=== PATIENT | female | born 1930 | race Two or more races ===

== ENCOUNTER 2017-09-26 10:15 | Inpatient (IN) | payer MEDICARE, MEDICAID ==
[~2017-09-26] VITALS: Ht 160 cm; Wt 89.8 kg
[2017-09-26 10:58] LABS: Basophils # (auto) 0 uL; Basophils % (auto) 0.3 % (0.0-2.0); Eosinophils # (auto) 0.1 uL; Eosinophils % (auto) 1.1 % (0.0-7.0); Hematocrit 28.8 % (36.0-46.0); Hemoglobin 9.5 g/dL (12.2-16.2); Lymphocytes # (auto) 1.9 uL; Mean Corpuscular Hgb Conc. 32.9 g/dL (32.0-36.0); Mean Corpuscular Volume 87.9 fL (80.0-100.0); Monocytes % (auto) 11.7 % (0.0-12.0); Neutrophils # (auto) 5.2 uL; Neutrophils % (auto) 63.9 % (37.0-80.0); Nucleated Red Blood Cells % 0.1 %; Platelet Count (auto) 258 10^3/uL (140-450); Red Blood Cells 3.27 10^6/uL (4.0-5.20); Red Cell Distribution Width 22.4 % (11.8-14.3); White Blood Cell 8.2 10^3/uL (4.4-10.8)
[2017-09-26 11:15] LABS: Alanine Aminotransferase 33 U/L (13-56); Anion Gap 9 (5-15); Aspartate Aminotransferase 19 U/L (15-37); BUN/Creatinine Ratio 21.5; Blood Urea Nitrogen 70 mg/dL (7-18); Calcium 8.5 mg/dL (8.5-10.1); Carbon Dioxide 21 mmol/L (21-32); Chloride 94 mmol/L (98-107); GFR African American 17 mL/min; GFR Non-African American 14 mL/min; Glucose 268 mg/dL (74-106); Magnesium 2.5 mg/dL (1.6-2.6); Sodium 124 mmol/L (136-145)
[2017-09-26 11:18] LABS: Potassium 5.8 mmol/L (3.5-5.1)
[2017-09-26 11:23] LABS: Alkaline Phosphatase 44 U/L (45-117); Bilirubin, Total 0.6 mg/dL (0.2-1.0); Total Protein 6.8 g/dL (6.4-8.2)
[2017-09-26 13:54] LABS: Urine Bacteria FEW /hpf (None Seen); Urine Blood Negative /uL (Negative); Urine Specific Gravity 1.005 (1.001-1.035); Urine WBC 1 /hpf (0 - 5)
[2017-09-26] MEDS ORDERED: cefTRIAXone 1GM/10ml IVPUSH 10 ML IV ONE (16:00)
[2017-09-26] MEDS ORDERED: VANCOMYCIN PER PHARMACY 0 MG IV SCH (16:00)
[2017-09-26] MEDS ORDERED: DEXTROSE (50%) 50ML SYRG IV PRN (16:00)
[2017-09-26] MEDS ORDERED: CALCIUM GLUC 4.65meq/50ml D5AE 50 ML IV ONE (16:00)
[2017-09-26] MEDS ORDERED: InsuLIN REG 1unit/0.01ml Soln (100units/ml) SC ONE (16:00)
[2017-09-26] MEDS ORDERED: SODIUM BICARBONATE 8.4 % INJ 50ML VIAL IV ONE (16:00)
[2017-09-26] MEDS ORDERED: ONDANSETRON HCL 4 MG/2 ML VIAL IV PRN (16:15)
[2017-09-26] MEDS ORDERED: FUROSEMIDE 40 MG/4 ML VIAL IV ONE (16:15)
[2017-09-26] MEDS ORDERED: DOCUSATE SOD 100 MG CAP PO PRN (16:15)
[2017-09-26] MEDS ORDERED: ACETAMINOPHEN 325 MG TAB PO PRN (16:15)
[2017-09-26] MEDS ORDERED: MORPHINE SULFATE 8mg/ml INJ SDV IV PRN (16:15)
[2017-09-26] MEDS ORDERED: TEMAZEPAM 15 MG CAP PO PRN (16:15)
[2017-09-26] MEDS: ACCU-CHEK COMFORT CURVE STRIP VI SCH ×2 (17:00→23:43)
[2017-09-26] MEDS: InsuLIN REG 1unit/0.01ml Soln (100units/ml) SC SCH ×2 (17:00→23:43)
[2017-09-26] MEDS ORDERED: SODIUM BICARBONATE 8.4% INJ 50ML SYRINGE ONE (17:19)
[2017-09-26] MEDS: Boost Glucose Control 8 Ounces PO SCH (18:00)
[2017-09-26] MEDS ORDERED: VANCOMYCIN 1GM/250ML 250 ML IV SCH (18:00)
[2017-09-26] MEDS: SODIUM CHLOR 0.9% PF (SALINE LOCK) 10ML VIAL/SYR IV SCH (21:18)
[2017-09-26 22:00] VITALS: BP 149/77
[2017-09-26] MEDS ORDERED: FAMOTIDINE 20 MG TAB PO SCH (22:00)
[2017-09-26] MEDS: CARVEDILOL 12.5 MG TAB PO SCH (23:42)
[2017-09-26] MEDS: PANTOPRAZOLE 40 MG TAB PO SCH (23:43)
[2017-09-27] MEDS ORDERED: ALPR0.254 PO (03:13)
[2017-09-27] MEDS ORDERED: HYDR-4683 PO (03:13)
[2017-09-27] MEDS ORDERED: INSUINJ18 SC (03:13)
[2017-09-27] MEDS ORDERED: ONDA4TAB5 PO (03:13)
[2017-09-27] MEDS ORDERED: LISI-275 PO (03:13)
[2017-09-27] MEDS ORDERED: PANT40T PO (03:13)
[2017-09-27] MEDS ORDERED: ALBUAER3 IN (03:13)
[2017-09-27] MEDS ORDERED: FURO40TA4 PO (03:13)
[2017-09-27] MEDS ORDERED: SPIR100T21 PO (03:13)
[2017-09-27] MEDS ORDERED: B-CO-5 OR (03:13)
[2017-09-27] MEDS ORDERED: INSUINJ37 SC ×2 (03:13)
[2017-09-27] MEDS ORDERED: HYDR100T22 PO (03:13)
[2017-09-27] MEDS ORDERED: DULA1INJ SC (03:13)
[2017-09-27] MEDS ORDERED: TEMA15CA PO (03:13)
[2017-09-27] MEDS ORDERED: CARV12.544 PO (03:13)
[2017-09-27] MEDS ORDERED: TRAM50TA2 PO (03:13)
[2017-09-27] MEDS ORDERED: DOCU100C8 PO (03:13)
[2017-09-27] MEDS ORDERED: GUAI1SOL PO (03:13)
[2017-09-27] MEDS ORDERED: ZOLP5TAB5 PO (03:13)
[2017-09-27] MEDS ORDERED: PRE5T PO (03:13)
[2017-09-27] MEDS ORDERED: SENN1TAB14 PO (03:13)
[2017-09-27] MEDS ORDERED: LIDO5DIS21 TOP (03:13)
[2017-09-27] MEDS ORDERED: POTA10TA34 PO (03:13)
[2017-09-27] MEDS ORDERED: LACT10SO3 PO (03:13)
[2017-09-27] MEDS ORDERED: FERR-20 PO (03:13)
[2017-09-27] MEDS ORDERED: AMLO5TAB2 PO (03:13)
[2017-09-27 05:08] VITALS: BP 94/44
[2017-09-27 05:56] LABS: Basophils # (auto) 0 uL; Eosinophils # (auto) 0 uL; Hemoglobin 8.4 g/dL (12.2-16.2); Monocytes # (auto) 0.7 uL; Nucleated Red Blood Cells % 0.2 %
[2017-09-27 05:59] LABS: Basophils % (auto) 0.3 % (0.0-2.0); Eosinophils % (auto) 0.7 % (0.0-7.0); Hematocrit 24.7 % (36.0-46.0); Lymphocytes # (auto) 1.4 uL; Lymphocytes % (auto) 21.8 % (10.0-50.0); Mean Corpuscular Hgb Conc. 33.8 g/dL (32.0-36.0); Mean Corpuscular Volume 88.8 fL (80.0-100.0); Neutrophils # (auto) 4.4 uL; Neutrophils % (auto) 67.2 % (37.0-80.0); Platelet Count (auto) 233 10^3/uL (140-450); Red Blood Cells 2.78 10^6/uL (4.0-5.20); White Blood Cell 6.6 10^3/uL (4.4-10.8)
[2017-09-27 06:10] LABS: Red Cell Distribution Width 22.9 % (11.8-14.3)
[2017-09-27 06:27] LABS: Albumin 2.5 g/dL (3.4-5.0); BUN/Creatinine Ratio 20.1; Bilirubin, Total 0.5 mg/dL (0.2-1.0); Calcium 8.3 mg/dL (8.5-10.1); Potassium 5.3 mmol/L (3.5-5.1)
[2017-09-27] MEDS: ACCU-CHEK COMFORT CURVE STRIP VI SCH ×4 (06:43→22:40)
[2017-09-27] MEDS: SODIUM CHLOR 0.9% PF (SALINE LOCK) 10ML VIAL/SYR IV SCH ×3 (06:43→22:39)
[2017-09-27] MEDS: INSULIN LANTUS (GLARGINE) 1 /0.01ml (100units/ml) SC SCH (06:43)
[2017-09-27] MEDS: InsuLIN REG 1unit/0.01ml Soln (100units/ml) SC SCH ×4 (06:44→22:40)
[2017-09-27 08:00] VITALS: BP 103/42
[2017-09-27] MEDS: Boost Glucose Control 8 Ounces PO SCH ×3 (08:00→18:02)
[2017-09-27 08:35] VITALS: BP 103/42
[2017-09-27] MEDS: HYDROcodone-ACET 5/325MG TAB PO PRN ×2 (08:46→22:44)
[2017-09-27] MEDS: cefTRIAXone 1GM/10ml IVPUSH 10 ML IV SCH (08:47)
[2017-09-27] MEDS: amLODIPine BESYLATE 5 MG TAB PO SCH (10:00)
[2017-09-27] MEDS ORDERED: LISINOPRIL 5 MG TAB PO SCH (10:00)
[2017-09-27] MEDS ORDERED: FUROSEMIDE 40 MG/4 ML VIAL IV SCH (10:00)
[2017-09-27] MEDS: CARVEDILOL 12.5 MG TAB PO SCH ×2 (10:00→22:40)
[2017-09-27] MEDS: LIDOCAINE 5% TOPICAL PATCH TOP SCH (10:27)
[2017-09-27] MEDS: PANTOPRAZOLE 40 MG TAB PO SCH ×2 (10:29→22:40)
[2017-09-27] MEDS: LACTULOSE 20Gm/30ML SOLN PO SCH (10:29)
[2017-09-27] MEDS: FERROUS SULFATE 325 MG TAB PO SCH (10:29)
[2017-09-27] MEDS: B-COMPLEX W/ C & FOLIC ACID(NEPHROVITE TAB) PO SCH (10:29)
[2017-09-27 12:38] VITALS: BP 100/46
[2017-09-27 17:03] VITALS: BP 110/49
[2017-09-27] MEDS: FUROSEMIDE 40 MG/4 ML VIAL IV SCH (17:34)
[2017-09-27 22:03] VITALS: BP 121/47
[2017-09-28 04:59] VITALS: BP 91/53
[2017-09-28 05:45] LABS: Basophils # (auto) 0 uL; Basophils % (auto) 0.3 % (0.0-2.0); Eosinophils # (auto) 0.1 uL; Hemoglobin 8.1 g/dL (12.2-16.2); Lymphocytes # (auto) 1.5 uL; Mean Corpuscular Hgb Conc. 33.9 g/dL (32.0-36.0); Monocytes # (auto) 0.8 uL; Red Blood Cells 2.74 10^6/uL (4.0-5.20)
[2017-09-28 05:48] LABS: Eosinophils % (auto) 2.2 % (0.0-7.0); Hematocrit 24.1 % (36.0-46.0); Lymphocytes % (auto) 26.2 % (10.0-50.0); Mean Corpuscular Hemoglobin 29.8 pg (28.0-32.0); Mean Corpuscular Volume 87.9 fL (80.0-100.0); Monocytes % (auto) 12.8 % (0.0-12.0); Neutrophils # (auto) 3.4 uL; Neutrophils % (auto) 58.5 % (37.0-80.0); Nucleated Red Blood Cells % 0.2 %; Platelet Count (auto) 216 10^3/uL (140-450); White Blood Cell 5.9 10^3/uL (4.4-10.8)
[2017-09-28 06:05] LABS: Red Cell Distribution Width 22.3 % (11.8-14.3)
[2017-09-28 06:14] LABS: % Iron Saturation 6.2 % (15-50)
[2017-09-28] MEDS: SODIUM CHLOR 0.9% PF (SALINE LOCK) 10ML VIAL/SYR IV SCH ×3 (06:18→21:28)
[2017-09-28] MEDS: FUROSEMIDE 40 MG/4 ML VIAL IV SCH ×2 (06:18→17:49)
[2017-09-28] MEDS: ACCU-CHEK COMFORT CURVE STRIP VI SCH ×4 (06:31→21:28)
[2017-09-28 06:32] LABS: Albumin 2.4 g/dL (3.4-5.0); BUN/Creatinine Ratio 23.2; Bilirubin, Total 0.3 mg/dL (0.2-1.0); Potassium 4.8 mmol/L (3.5-5.1)
[2017-09-28] MEDS: InsuLIN REG 1unit/0.01ml Soln (100units/ml) SC SCH ×4 (06:32→21:33)
[2017-09-28] MEDS: INSULIN LANTUS (GLARGINE) 1 /0.01ml (100units/ml) SC SCH (06:32)
[2017-09-28] MEDS: Boost Glucose Control 8 Ounces PO SCH ×3 (08:00→17:49)
[2017-09-28 10:00] VITALS: BP 104/53
[2017-09-28] MEDS: LIDOCAINE 5% TOPICAL PATCH TOP SCH (10:00)
[2017-09-28] MEDS: amLODIPine BESYLATE 5 MG TAB PO SCH (10:00)
[2017-09-28] MEDS: LACTULOSE 20Gm/30ML SOLN PO SCH (10:00)
[2017-09-28] MEDS: CARVEDILOL 12.5 MG TAB PO SCH ×2 (10:00→21:33)
[2017-09-28] MEDS: FERROUS SULFATE 325 MG TAB PO SCH (10:47)
[2017-09-28] MEDS: cefTRIAXone 1GM/10ml IVPUSH 10 ML IV SCH (10:47)
[2017-09-28] MEDS: B-COMPLEX W/ C & FOLIC ACID(NEPHROVITE TAB) PO SCH (10:48)
[2017-09-28] MEDS: PANTOPRAZOLE 40 MG TAB PO SCH ×2 (10:48→21:28)
[2017-09-28] MEDS: HYDROcodone-ACET 5/325MG TAB PO PRN ×2 (10:50→21:28)
[2017-09-28 12:27] VITALS: BP 110/54
[2017-09-28 17:00] VITALS: BP 114/61
[2017-09-28 20:00] VITALS: BP 113/59
[2017-09-28 22:00] VITALS: BP 113/59
[2017-09-29 06:04] LABS: Basophils # (auto) 0 uL; Eosinophils # (auto) 0.2 uL; Hematocrit 24.6 % (36.0-46.0); Hemoglobin 8.3 g/dL (12.2-16.2); Lymphocytes # (auto) 1.7 uL; Mean Corpuscular Hgb Conc. 33.9 g/dL (32.0-36.0); Monocytes # (auto) 0.9 uL; Neutrophils # (auto) 3.3 uL
[2017-09-29] MEDS: FUROSEMIDE 40 MG/4 ML VIAL IV SCH (06:11)
[2017-09-29] MEDS: SODIUM CHLOR 0.9% PF (SALINE LOCK) 10ML VIAL/SYR IV SCH ×2 (06:11→14:20)
[2017-09-29 06:28] LABS: Albumin 2.4 g/dL (3.4-5.0); BUN/Creatinine Ratio 27.6; Bilirubin, Total 0.3 mg/dL (0.2-1.0); Calcium 8.1 mg/dL (8.5-10.1); Potassium 4.2 mmol/L (3.5-5.1); Total Protein 6.1 g/dL (6.4-8.2)
[2017-09-29 06:31] LABS: Basophils % (auto) 0.3 % (0.0-2.0); Eosinophils % (auto) 2.8 % (0.0-7.0); Lymphocytes % (auto) 27.9 % (10.0-50.0); Mean Corpuscular Hemoglobin 29.9 pg (28.0-32.0); Mean Corpuscular Volume 88.3 fL (80.0-100.0); Nucleated Red Blood Cells % 0.3 %; Platelet Count (auto) 238 10^3/uL (140-450); Red Blood Cells 2.78 10^6/uL (4.0-5.20); White Blood Cell 6.1 10^3/uL (4.4-10.8)
[2017-09-29 06:39] LABS: Red Cell Distribution Width 22.7 % (11.8-14.3)
[2017-09-29] MEDS: InsuLIN REG 1unit/0.01ml Soln (100units/ml) SC SCH ×3 (06:45→17:57)
[2017-09-29] MEDS: INSULIN LANTUS (GLARGINE) 1 /0.01ml (100units/ml) SC SCH (06:45)
[2017-09-29] MEDS: ACCU-CHEK COMFORT CURVE STRIP VI SCH ×3 (06:45→17:58)
[2017-09-29 08:00] VITALS: BP 108/50
[2017-09-29 09:00] VITALS: BP 108/50
[2017-09-29] MEDS: B-COMPLEX W/ C & FOLIC ACID(NEPHROVITE TAB) PO SCH (09:33)
[2017-09-29] MEDS: PANTOPRAZOLE 40 MG TAB PO SCH (09:33)
[2017-09-29] MEDS: CARVEDILOL 12.5 MG TAB PO SCH (09:33)
[2017-09-29] MEDS: LACTULOSE 20Gm/30ML SOLN PO SCH (09:34)
[2017-09-29] MEDS: cefTRIAXone 1GM/10ml IVPUSH 10 ML IV SCH (09:34)
[2017-09-29] MEDS: amLODIPine BESYLATE 5 MG TAB PO SCH (09:34)
[2017-09-29] MEDS: LIDOCAINE 5% TOPICAL PATCH TOP SCH (09:35)
[2017-09-29] MEDS: Boost Glucose Control 8 Ounces PO SCH ×3 (11:58→18:00)
[2017-09-29] MEDS ORDERED: SODIUM FERR GLUC 62.5MG/5ML 125 MG in SODIUM CHL 0.9% 100 ML IV SCH (12:00)
[2017-09-29 13:00] VITALS: BP 129/48
[2017-09-29 17:00] VITALS: BP 128/58
[2017-09-29 20:00] VITALS: BP 139/53
[2017-09-29 20:31] VITALS: BP 139/53
[2017-09-29] MEDS ORDERED: CARVEDILOL 3.125 MG TAB PO SCH (22:00)
[2017-09-30] MEDS ORDERED: FUROSEMIDE 40 MG/4 ML VIAL IV SCH (06:00)
== END 2017-09-29 21:30 | DRG 871 ==
LOC: EDBD 10:15 → ER 10:15 → OVERFLOW 10:16 → WEST WING 21:46
PROVIDERS: ADMIT Internal Medicine; ATTEND Internal Medicine
DX: A41.9 Sepsis, unspecified organism (principal); I50.43 Acute on chronic combined systolic (congestive) and diastolic (congestive) heart failure; J96.01 Acute respiratory failure with hypoxia; I13.2 Hypertensive heart and chronic kidney disease with heart failure and with stage 5 chronic kidney disease, or end stage renal disease; N17.9 Acute kidney failure, unspecified; E44.0 Moderate protein-calorie malnutrition; N18.6 End stage renal disease; N39.0 Urinary tract infection, site not specified; E87.1 Hypo-osmolality and hyponatremia; E11.21 Type 2 diabetes mellitus with diabetic nephropathy; E78.5 Hyperlipidemia, unspecified; D63.8 Anemia in other chronic diseases classified elsewhere; J44.9 Chronic obstructive pulmonary disease, unspecified; E11.22 Type 2 diabetes mellitus with diabetic chronic kidney disease; E87.5 Hyperkalemia; I25.10 Atherosclerotic heart disease of native coronary artery without angina pectoris; E11.65 Type 2 diabetes mellitus with hyperglycemia; D50.9 Iron deficiency anemia, unspecified; Z83.3 Family history of diabetes mellitus; Z99.81 Dependence on supplemental oxygen; Z68.35 Body mass index [BMI] 35.0-35.9, adult; Z88.2 Allergy status to sulfonamides; Z88.1 Allergy status to other antibiotic agents; I25.2 Old myocardial infarction
CPT/HCPCS: 36415; 36600; 71045; 76775; 80053; 81001; 82805; 82962; 83036; 83540; 83550; 83605; 83735; 83880; 84484; 85025; 85379; 87040; 87081; 87086; 93005; 93306; 93970; 96372; 96374; 96375; 96376; 99291; J0610; J1815

== ENCOUNTER 2020-08-15 21:04 | Inpatient (IN) | payer MEDICARE, MEDICAID ==
[~2020-08-15] VITALS: Ht 160 cm; Wt 81.8 kg
[~2020-08-15 21:04] MED LIST: ALBUAER3 IN; ALPR0.254 PO; B-CO-5 OR; CARV6.2551 PO; DOCU100C10 PO; DULA1INJ SC; EPOE10003 IJ; FERR-20 PO; FURO40TA4 PO; GUAI1SOL PO; HYDR-4833 PO; HYDR100T22 PO; HYDR10TA26 PO; INSUINJ18 SC; INSUINJ37 SC; LACT10SO3 PO; LIDO5DIS21 TOP; LISI-275 PO; MAGN400C2 PO; METF-370 PO; METH500T22 PO; ONDA-144 PO; PANT40T PO; POTA1TAB61 PO; PRE5T PO; SENN1TAB14 PO; SPIR100T4 PO; SUCR1TAB PO; TEMA15CA PO; TERA1CAP33 PO; TRAM50TA2 PO; ZOLP5TAB5 PO
[2020-08-15 22:23] LABS: Basophils # (auto) 0 10 ^3/uL (0-0.2); Eosinophils # (auto) 0.3 10 ^3/uL (0-0.8); Eosinophils % (auto) 2.5 % (0.0-7.0); Hemoglobin 7.7 g/dL (12.2-16.2); Lymphocytes # (auto) 0.7 10 ^3/uL (0.4-5.4); Monocytes # (auto) 0.8 10 ^3/uL (0-1.3)
[2020-08-15 22:24] LABS: Basophils % (auto) 0.1 % (0.0-2.0); Hematocrit 22.8 % (36.0-46.0); Lymphocytes % (auto) 6.7 % (10.0-50.0); Mean Corpuscular Hemoglobin 28.6 pg (28.0-32.0); Mean Corpuscular Hgb Conc. 33.8 g/dL (32.0-36.0); Mean Corpuscular Volume 84.7 fL (80.0-100.0); Monocytes % (auto) 7.7 % (0.0-12.0); Neutrophils # (auto) 8.7 10 ^3/uL (1.6-8.6); Red Cell Distribution Width 15.6 % (11.8-14.3); White Blood Cell 10.5 10^3/uL (4.4-10.8)
[2020-08-15 22:42] LABS: Albumin 2.6 g/dL (3.4-5.0); Anion Gap 10 (5-15); Blood Urea Nitrogen 68 mg/dL (7-18); Calcium 7.9 mg/dL (8.5-10.1); Carbon Dioxide 23 mmol/L (21-32); Chloride 93 mmol/L (98-107); Glucose 263 mg/dL (74-106); Potassium 4.3 mmol/L (3.5-5.1); Sodium 126 mmol/L (136-145)
[2020-08-15 22:47] LABS: Alanine Aminotransferase 30 U/L (13-56); Alkaline Phosphatase 84 U/L (45-117); Aspartate Aminotransferase 21 U/L (15-37); Bilirubin, Total 0.6 mg/dL (0.2-1.0); GFR African American 30 mL/min; GFR Non-African American 25 mL/min; Total Protein 7.1 g/dL (6.4-8.2)
[2020-08-15 22:57] LABS: INR 1.15 (0.9-1.15); Partial Thromboplastin Time 29.8 sec (23.0-31.2)
[2020-08-15] MEDS ORDERED: FUROSEMIDE 20 MG/2 ML VIAL IV ONE (23:15)
[2020-08-16] MEDS ORDERED: NITROGLYCERIN 0.4 MG SL TAB SL PRN
[2020-08-16] MEDS ORDERED: ACETAMINOPHEN 325 MG TAB PO PRN
[2020-08-16] MEDS ORDERED: MORPHINE SULFATE INJECTION 2 MG/ML SYRG IV PRN
[2020-08-16] MEDS ORDERED: ALBUTEROL SULF 2.5 MG/0.5ML(0.5%) NEB SOLN NEB PRN
[2020-08-16 01:25] VITALS: BP 130/50
[2020-08-16] MEDS ORDERED: ONDANSETRON HCL 4 MG/2 ML VIAL IV ONE (02:00)
[2020-08-16] MEDS ORDERED: MORPHINE SULFATE INJECTION 2 MG/ML SYRG IV ONE (02:00)
[2020-08-16] MEDS ORDERED: FUROSEMIDE 40 MG/4 ML VIAL IV ONE (10:00)
[2020-08-16] MEDS ORDERED: EPOETIN ALFA-EPBX 10,000 UNIT/1ML VIAL SC SCH (10:00)
[2020-08-16] MEDS: DOCUSATE SOD 100 MG CAP PO SCH ×2 (10:00→22:00)
[2020-08-16] MEDS: CARVEDILOL 3.125 MG TAB PO SCH ×2 (10:06→22:01)
[2020-08-16] MEDS: SUCRALFATE 1 GM TAB PO SCH (10:06)
[2020-08-16] MEDS: LISINOPRIL 5 MG TAB PO SCH (10:07)
[2020-08-16] MEDS: PANTOPRAZOLE 40 MG TAB PO SCH ×2 (10:07→22:01)
[2020-08-16] MEDS ORDERED: DEXTROSE (50%) 50ML SYRG IV PRN (12:15)
[2020-08-16] MEDS: InsuLIN REG 1unit/0.01ml Soln (100units/ml) SC SCH ×3 (12:17→22:11)
[2020-08-16] MEDS ORDERED: INSREGI (14:25)
[2020-08-16] MEDS ORDERED: FLUT1AER3 INH (14:25)
[2020-08-16] MEDS ORDERED: HYDR1CAP27 PO (14:25)
[2020-08-16] MEDS ORDERED: ERGO1CAP12 PO (14:25)
[2020-08-16 16:00] VITALS: BP 150/72
[2020-08-16] MEDS: ACCU-CHEK COMFORT CURVE STRIP VI SCH ×2 (17:00→22:03)
[2020-08-16] MEDS ORDERED: LACTULOSE 20Gm/30ML SOLN PO PRN (17:00)
[2020-08-16] MEDS ORDERED: FUROSEMIDE 100 MG/10ML VIAL IV SCH (18:00)
[2020-08-16 18:10] LABS: Urine Bacteria NONE SEEN /hpf (None Seen); Urine Blood 2+ /uL (Negative); Urine Specific Gravity 1.009 (1.001-1.035); Urine WBC 2 /hpf (0 - 5)
[2020-08-16] MEDS: FERROUS SULFATE 325mg EC TAB PO SCH (22:00)
[2020-08-16] MEDS: TEMAZEPAM 15 MG CAP PO SCH (22:02)
[2020-08-16] MEDS: INSULIN LANTUS (GLARGINE) 1 /0.01ml (100units/ml) SC SCH (22:04)
[2020-08-16 22:25] VITALS: BP 130/60
[2020-08-17] VITALS (7 sets, daily range): BP systolic 120–137; BP diastolic 48–60
[2020-08-17] MEDS: ACCU-CHEK COMFORT CURVE STRIP VI SCH ×4 (06:09→21:56)
[2020-08-17] MEDS: InsuLIN REG 1unit/0.01ml Soln (100units/ml) SC SCH ×4 (06:12→21:53)
[2020-08-17] MEDS: SUCRALFATE 1 GM TAB PO SCH (10:09)
[2020-08-17] MEDS: DOCUSATE SOD 100 MG CAP PO SCH ×2 (10:10→21:52)
[2020-08-17] MEDS: LISINOPRIL 5 MG TAB PO SCH (10:11)
[2020-08-17] MEDS: FUROSEMIDE 20 MG TAB PO SCH ×2 (10:12→17:26)
[2020-08-17] MEDS: PANTOPRAZOLE 40 MG TAB PO SCH ×2 (10:12→21:36)
[2020-08-17 10:19] LABS: Basophils # (auto) 0 10 ^3/uL (0-0.2); Eosinophils # (auto) 0.3 10 ^3/uL (0-0.8); Lymphocytes # (auto) 1.3 10 ^3/uL (0.4-5.4); Monocytes # (auto) 0.9 10 ^3/uL (0-1.3); Red Blood Cells 2.68 10^6/uL (4.0-5.20)
[2020-08-17 10:25] LABS: Basophils % (auto) 0.3 % (0.0-2.0); Eosinophils % (auto) 3.5 % (0.0-7.0); Hematocrit 22.4 % (36.0-46.0); Hemoglobin 7.6 g/dL (12.2-16.2); Lymphocytes % (auto) 14.6 % (10.0-50.0); Mean Corpuscular Hemoglobin 28.3 pg (28.0-32.0); Mean Corpuscular Hgb Conc. 33.8 g/dL (32.0-36.0); Mean Corpuscular Volume 83.8 fL (80.0-100.0); Monocytes % (auto) 10.4 % (0.0-12.0); Neutrophils # (auto) 6.3 10 ^3/uL (1.6-8.6); Neutrophils % (auto) 71.2 % (37.0-80.0); Nucleated Red Blood Cells % 0.1 %; White Blood Cell 8.9 10^3/uL (4.4-10.8)
[2020-08-17 10:43] LABS: Calcium 8.4 mg/dL (8.5-10.1); Potassium 4.5 mmol/L (3.5-5.1)
[2020-08-17 10:46] LABS: BUN/Creatinine Ratio 31.3
[2020-08-17] MEDS: CARVEDILOL 3.125 MG TAB PO SCH ×2 (12:27→21:36)
[2020-08-17] MEDS: TEMAZEPAM 15 MG CAP PO SCH (21:35)
[2020-08-17] MEDS: FERROUS SULFATE 325mg EC TAB PO SCH (21:36)
[2020-08-17] MEDS: INSULIN LANTUS (GLARGINE) 1 /0.01ml (100units/ml) SC SCH (21:58)
[2020-08-18] VITALS (7 sets, daily range): BP systolic 122–154; BP diastolic 49–73
[2020-08-18] MEDS: FUROSEMIDE 20 MG TAB PO SCH (05:46)
[2020-08-18] MEDS: ACCU-CHEK COMFORT CURVE STRIP VI SCH ×3 (06:15→17:00)
[2020-08-18] MEDS: InsuLIN REG 1unit/0.01ml Soln (100units/ml) SC SCH ×4 (06:20→19:35)
[2020-08-18 06:58] LABS: Basophils # (auto) 0 10 ^3/uL (0-0.2); Basophils % (auto) 0.4 % (0.0-2.0); Eosinophils # (auto) 0.3 10 ^3/uL (0-0.8); Eosinophils % (auto) 3.7 % (0.0-7.0); Hematocrit 26.3 % (36.0-46.0); Hemoglobin 8.9 g/dL (12.2-16.2); Lymphocytes % (auto) 10.6 % (10.0-50.0); Mean Corpuscular Volume 85.1 fL (80.0-100.0); Monocytes # (auto) 1.1 10 ^3/uL (0-1.3); Monocytes % (auto) 11.4 % (0.0-12.0); Neutrophils # (auto) 6.8 10 ^3/uL (1.6-8.6); Neutrophils % (auto) 73.9 % (37.0-80.0); Nucleated Red Blood Cells % 0.1 %; Red Blood Cells 3.09 10^6/uL (4.0-5.20); Red Cell Distribution Width 15.8 % (11.8-14.3); White Blood Cell 9.2 10^3/uL (4.4-10.8)
[2020-08-18] MEDS ORDERED: FUROSEMIDE 20 MG TAB PO SCH (10:00)
[2020-08-18] MEDS: LISINOPRIL 5 MG TAB PO SCH (10:00)
[2020-08-18] MEDS: SUCRALFATE 1 GM TAB PO SCH (10:41)
[2020-08-18] MEDS: CARVEDILOL 3.125 MG TAB PO SCH (10:42)
[2020-08-18] MEDS: DOCUSATE SOD 100 MG CAP PO SCH (10:42)
[2020-08-18] MEDS: PANTOPRAZOLE 40 MG TAB PO SCH (10:43)
== END 2020-08-18 20:45 | disposition home health service (06) | DRG 291 ==
LOC: EDBD 21:04 → ER 21:05 → TELE 23:56 → TELE-WESTW 08-16 12:30
PROVIDERS: ADMIT Internal Medicine; ATTEND Internal Medicine
PROC: 30233N1 Transfusion of Nonautologous Red Blood Cells into Peripheral Vein, Percutaneous Approach (ICD-10-PCS; 2020-08-17)
PROC: 4B02XSZ Measurement of Cardiac Pacemaker, External Approach (ICD-10-PCS; principal; 2020-08-18)
DX: I13.0 Hypertensive heart and chronic kidney disease with heart failure and stage 1 through stage 4 chronic kidney disease, or unspecified chronic kidney disease (principal); J96.01 Acute respiratory failure with hypoxia; I50.33 Acute on chronic diastolic (congestive) heart failure; N18.4 Chronic kidney disease, stage 4 (severe); E44.0 Moderate protein-calorie malnutrition; I48.91 Unspecified atrial fibrillation; E78.5 Hyperlipidemia, unspecified; Z68.30 Body mass index [BMI] 30.0-30.9, adult; J44.9 Chronic obstructive pulmonary disease, unspecified; D64.9 Anemia, unspecified; E11.22 Type 2 diabetes mellitus with diabetic chronic kidney disease; E66.9 Obesity, unspecified; I25.10 Atherosclerotic heart disease of native coronary artery without angina pectoris; Z20.822 Contact with and (suspected) exposure to COVID-19; Z79.899 Other long term (current) drug therapy; I25.2 Old myocardial infarction; Z83.3 Family history of diabetes mellitus; Z87.01 Personal history of pneumonia (recurrent); Z87.891 Personal history of nicotine dependence; Z95.0 Presence of cardiac pacemaker; Z88.1 Allergy status to other antibiotic agents; Z88.2 Allergy status to sulfonamides
CPT/HCPCS: 36415; 71045; 80048; 80053; 81001; 82270; 82962; 83880; 84484; 85025; 85610; 85730; 86850; 86900; 86901; 86920; 87426; 93005; 93306; 93970; 96374; 99291; G0378; J1815

== ENCOUNTER 2020-10-01 14:48 | Inpatient (IN) | payer MEDICARE, MEDICAID ==
[~2020-10-01] VITALS: Ht 167.6 cm; Wt 84.3 kg
[~2020-10-01 14:48] MED LIST changes: -ALBUAER3 IN; -ALPR0.254 PO; -B-CO-5 OR; -DULA1INJ SC; +ERGO1CAP12 PO; +FLUT1AER3 INH; -GUAI1SOL PO; -HYDR-4833 PO; -HYDR10TA26 PO; +HYDR1CAP27 PO; +INSREGI; -INSUINJ18 SC; -LACT10SO3 PO; -LIDO5DIS21 TOP; -LISI-275 PO; -METF-370 PO; -ONDA-144 PO; -PRE5T PO; -SENN1TAB14 PO; -SPIR100T4 PO; -TRAM50TA2 PO; -ZOLP5TAB5 PO
[2020-10-01] MEDS ORDERED: ONDANSETRON HCL 4 MG/2 ML VIAL ONE (14:55)
[2020-10-01] MEDS ORDERED: ONDANSETRON HCL 4 MG/2 ML VIAL IV ONE (15:00)
[2020-10-01] MEDS ORDERED: FUROSEMIDE 40 MG/4 ML VIAL IV ONE (15:15)
[2020-10-01] MEDS ORDERED: SUCCINYLCHOLINE CHLORIDE 20 MG/ML 10ML VIAL IV ONE ×2 (15:24→15:30)
[2020-10-01] MEDS ORDERED: ETOMIDATE (2MG/ML) 20ML VIAL IV ONE ×2 (15:24→15:30)
[2020-10-01] MEDS ORDERED: MIDAZOLAM DRIP 50 mg/50mL 50 ML IV ONE (15:25)
[2020-10-01 15:29] LABS: Basophils # (auto) 0 10 ^3/uL (0-0.2); Eosinophils # (auto) 0.1 10 ^3/uL (0-0.8); Hemoglobin 7.3 g/dL (12.2-16.2); Lymphocytes # (auto) 1.3 10 ^3/uL (0.4-5.4); Monocytes # (auto) 0.8 10 ^3/uL (0-1.3)
[2020-10-01] MEDS ORDERED: MIDAZOLAM DRIP 50 mg/50mL 50 ML IV SCH (15:30)
[2020-10-01 15:31] LABS: Basophils % (auto) 0.4 % (0.0-2.0); Eosinophils % (auto) 1.4 % (0.0-7.0); Hematocrit 22.9 % (36.0-46.0); Lymphocytes % (auto) 12.1 % (10.0-50.0); Mean Corpuscular Hemoglobin 30.4 pg (28.0-32.0); Mean Corpuscular Volume 94.9 fL (80.0-100.0); Monocytes % (auto) 7.2 % (0.0-12.0); Neutrophils # (auto) 8.5 10 ^3/uL (1.6-8.6); Neutrophils % (auto) 78.9 % (37.0-80.0); Platelet Count (auto) 211 10^3/uL (140-450); Red Blood Cells 2.41 10^6/uL (4.0-5.20); White Blood Cell 10.8 10^3/uL (4.4-10.8)
[2020-10-01 15:36] LABS: INR 1.12 (0.9-1.15); Partial Thromboplastin Time 27.3 sec (23.0-31.2)
[2020-10-01 15:49] LABS: Albumin 2.8 g/dL (3.4-5.0); BUN/Creatinine Ratio 39.3; Bilirubin, Total 0.6 mg/dL (0.2-1.0); Calcium 8.2 mg/dL (8.5-10.1); Potassium 5.3 mmol/L (3.5-5.1); Total Protein 6.7 g/dL (6.4-8.2)
[2020-10-01] MEDS ORDERED: PROPOFOL 100 ML IV ONE (16:01)
[2020-10-01] MEDS: PROPOFOL 100 ML IV SCH (16:25)
[2020-10-01] MEDS ORDERED: NOREPINEPHRINE 8 MG/250ML KIT 250 ML IV ONE (16:32)
[2020-10-01] MEDS: NOREPINEPHRINE 8 MG/250ML KIT 250 ML IV SCH (16:35)
[2020-10-01] MEDS: MIDAZOLAM DRIP 50 mg/50mL 50 ML IV SCH (17:24)
[2020-10-01 18:04] LABS: Urine Bacteria FEW /hpf (None Seen); Urine Blood Negative /uL (Negative); Urine Specific Gravity 1.011 (1.001-1.035); Urine WBC 1 /hpf (0 - 5)
[2020-10-01 18:09] VITALS: BP 131/40
[2020-10-01 18:33] VITALS: BP 140/47
[2020-10-01 20:08] VITALS: BP 124/47
[2020-10-01] MEDS ORDERED: HYDROcodone-ACET 5/325MG TAB PO PRN (21:30)
[2020-10-01] MEDS ORDERED: MORPHINE SULF INJ 2 MG/ML SYRINGE 1ML IV PRN (21:30)
[2020-10-01] MEDS ORDERED: ONDANSETRON HCL 4 MG/2 ML VIAL IV PRN (21:30)
[2020-10-01] MEDS ORDERED: MORPHINE SULFATE 4 MG/ML SYR/VIAL IV PRN (21:30)
[2020-10-01] MEDS ORDERED: NITROGLYCERIN 0.4 MG SL TAB SL PRN (21:30)
[2020-10-01] MEDS ORDERED: ACETAMINOPHEN 325 MG TAB PO PRN (21:30)
[2020-10-01] MEDS ORDERED: DEXTROSE (50%) 50ML SYRG IV PRN (21:30)
[2020-10-01 21:34] VITALS: BP 124/44
[2020-10-01] MEDS: HEPARIN SODIUM (PORCINE) 5000 UNITS/ML 1ML VIAL SC SCH (22:30)
[2020-10-01] MEDS: INSULIN LANTUS (GLARGINE) 1 /0.01ml (100units/ml) SC SCH (22:38)
[2020-10-02] VITALS (59 sets, daily range): BP systolic 98–145; BP diastolic 29–47
[2020-10-02] MEDS: ACCU-CHEK COMFORT CURVE STRIP VI SCH ×6 (00:06→20:00)
[2020-10-02] MEDS: InsuLIN REG 1unit/0.01ml Soln (100units/ml) SC SCH ×6 (00:07→20:00)
[2020-10-02] MEDS: PROPOFOL 100 ML IV SCH (00:12)
[2020-10-02] MEDS: MIDAZOLAM DRIP 50 mg/50mL 50 ML IV SCH ×5 (03:01→22:24)
[2020-10-02] MEDS: HEPARIN SODIUM (PORCINE) 5000 UNITS/ML 1ML VIAL SC SCH ×3 (05:52→22:22)
[2020-10-02 06:07] LABS: Basophils # (auto) 0 10 ^3/uL (0-0.2); Basophils % (auto) 0.3 % (0.0-2.0); Eosinophils # (auto) 0.2 10 ^3/uL (0-0.8); Eosinophils % (auto) 1.9 % (0.0-7.0); Hematocrit 21.1 % (36.0-46.0); Hemoglobin 7.1 g/dL (12.2-16.2); Lymphocytes # (auto) 0.7 10 ^3/uL (0.4-5.4); Lymphocytes % (auto) 5.2 % (10.0-50.0); Mean Corpuscular Hemoglobin 29.5 pg (28.0-32.0); Mean Corpuscular Hgb Conc. 33.4 g/dL (32.0-36.0); Mean Corpuscular Volume 88.2 fL (80.0-100.0); Monocytes # (auto) 1.2 10 ^3/uL (0-1.3); Monocytes % (auto) 9.4 % (0.0-12.0); Neutrophils # (auto) 10.8 10 ^3/uL (1.6-8.6); Neutrophils % (auto) 83.2 % (37.0-80.0); Platelet Count (auto) 209 10^3/uL (140-450); Red Blood Cells 2.39 10^6/uL (4.0-5.20); Red Cell Distribution Width 19.1 % (11.8-14.3)
[2020-10-02 06:21] LABS: Calcium 8.3 mg/dL (8.5-10.1); Potassium 3.6 mmol/L (3.5-5.1)
[2020-10-02 06:28] LABS: Albumin 2.8 g/dL (3.4-5.0); BUN/Creatinine Ratio 42.2; Bilirubin, Total 0.6 mg/dL (0.2-1.0); Total Protein 6.4 g/dL (6.4-8.2)
[2020-10-02] MEDS ORDERED: PANTOPRAZOLE 40 MG/10 ML VIAL INJ IV SCH (10:00)
[2020-10-02] MEDS: FUROSEMIDE 40 MG/4 ML VIAL IV SCH (10:30)
[2020-10-02] MEDS: NOREPINEPHRINE 8 MG/250ML KIT 250 ML IV SCH (15:15)
[2020-10-02] MEDS: INSULIN LANTUS (GLARGINE) 1 /0.01ml (100units/ml) SC SCH (22:00)
[2020-10-02] MEDS: PANTOPRAZOLE 40 MG/10 ML VIAL INJ IV SCH (22:21)
[2020-10-03] VITALS (62 sets, daily range): BP systolic 86–170; BP diastolic 26–116
[2020-10-03] MEDS: ACCU-CHEK COMFORT CURVE STRIP VI SCH ×6 (04:00→20:00)
[2020-10-03] MEDS: InsuLIN REG 1unit/0.01ml Soln (100units/ml) SC SCH ×6 (04:00→20:57)
[2020-10-03 10:23] LABS: Basophils # (auto) 0 10 ^3/uL (0-0.2); Eosinophils # (auto) 0.1 10 ^3/uL (0-0.8); Mean Corpuscular Volume 89.7 fL (80.0-100.0); Neutrophils # (auto) 10.8 10 ^3/uL (1.6-8.6)
[2020-10-03] MEDS: FUROSEMIDE 40 MG/4 ML VIAL IV SCH (10:23)
[2020-10-03] MEDS: PANTOPRAZOLE 40 MG/10 ML VIAL INJ IV SCH ×2 (10:23→20:44)
[2020-10-03 10:27] LABS: Basophils % (auto) 0.2 % (0.0-2.0); Eosinophils % (auto) 0.7 % (0.0-7.0); Hematocrit 21.3 % (36.0-46.0); Lymphocytes # (auto) 0.8 10 ^3/uL (0.4-5.4); Lymphocytes % (auto) 6.4 % (10.0-50.0); Mean Corpuscular Hemoglobin 29.4 pg (28.0-32.0); Mean Corpuscular Hgb Conc. 32.8 g/dL (32.0-36.0); Monocytes # (auto) 1.1 10 ^3/uL (0-1.3); Monocytes % (auto) 8.4 % (0.0-12.0); Neutrophils % (auto) 84.3 % (37.0-80.0); Platelet Count (auto) 224 10^3/uL (140-450); Red Blood Cells 2.37 10^6/uL (4.0-5.20); Red Cell Distribution Width 19.6 % (11.8-14.3); White Blood Cell 12.9 10^3/uL (4.4-10.8)
[2020-10-03 10:42] LABS: Albumin 2.5 g/dL (3.4-5.0); Calcium 8.4 mg/dL (8.5-10.1)
[2020-10-03 10:45] LABS: BUN/Creatinine Ratio 37.3; Bilirubin, Total 0.7 mg/dL (0.2-1.0)
[2020-10-03] MEDS: HEPARIN SODIUM (PORCINE) 5000 UNITS/ML 1ML VIAL SC SCH ×2 (14:23→20:54)
[2020-10-03] MEDS: PROPOFOL 100 ML IV SCH ×2 (16:00→22:00)
[2020-10-03] MEDS: NOREPINEPHRINE 8 MG/250ML KIT 250 ML IV SCH (16:45)
[2020-10-03] MEDS ORDERED: Glucerna 1.2 Cal 1Liter BOTTLE GT SCH (17:30)
[2020-10-03] MEDS: MIDAZOLAM DRIP 50 mg/50mL 50 ML IV SCH (19:15)
[2020-10-03] MEDS: INSULIN LANTUS (GLARGINE) 1 /0.01ml (100units/ml) SC SCH (20:56)
[2020-10-04] VITALS (78 sets, daily range): BP systolic 86–156; BP diastolic 15–104
[2020-10-04] MEDS: InsuLIN REG 1unit/0.01ml Soln (100units/ml) SC SCH ×6 (00:52→21:45)
[2020-10-04] MEDS: ACCU-CHEK COMFORT CURVE STRIP VI SCH ×6 (04:00→20:00)
[2020-10-04 04:47] LABS: Basophils # (auto) 0 10 ^3/uL (0-0.2); Basophils % (auto) 0.3 % (0.0-2.0); Eosinophils # (auto) 0.1 10 ^3/uL (0-0.8); Hematocrit 27.3 % (36.0-46.0); Hemoglobin 8.9 g/dL (12.2-16.2); Lymphocytes # (auto) 0.8 10 ^3/uL (0.4-5.4); Lymphocytes % (auto) 5.4 % (10.0-50.0); Mean Corpuscular Hemoglobin 28.7 pg (28.0-32.0); Monocytes # (auto) 1.4 10 ^3/uL (0-1.3); Monocytes % (auto) 9.6 % (0.0-12.0); Neutrophils % (auto) 83.7 % (37.0-80.0); White Blood Cell 14.4 10^3/uL (4.4-10.8)
[2020-10-04 04:48] LABS: Mean Corpuscular Hgb Conc. 32.6 g/dL (32.0-36.0); Platelet Count (auto) 244 10^3/uL (140-450); Red Cell Distribution Width 19.7 % (11.8-14.3)
[2020-10-04 05:07] LABS: Albumin 2.7 g/dL (3.4-5.0); Calcium 8.4 mg/dL (8.5-10.1); Magnesium 2.7 mg/dL (1.6-2.6); Potassium 3.5 mmol/L (3.5-5.1)
[2020-10-04 05:10] LABS: Bilirubin, Total 1.1 mg/dL (0.2-1.0); Total Protein 6.7 g/dL (6.4-8.2)
[2020-10-04] MEDS: MIDAZOLAM DRIP 50 mg/50mL 50 ML IV SCH ×2 (05:15→15:15)
[2020-10-04] MEDS: HEPARIN SODIUM (PORCINE) 5000 UNITS/ML 1ML VIAL SC SCH ×3 (05:38→21:52)
[2020-10-04] MEDS: POTASSIUM CHL 20MEQ/100ML 100 ML IV SCH ×2 (08:09→10:47)
[2020-10-04] MEDS: PANTOPRAZOLE 40 MG/10 ML VIAL INJ IV SCH ×2 (10:47→21:53)
[2020-10-04] MEDS: FUROSEMIDE 40 MG/4 ML VIAL IV SCH (10:47)
[2020-10-04] MEDS: NOREPINEPHRINE 8 MG/250ML KIT 250 ML IV SCH (16:45)
[2020-10-04] MEDS: INSULIN LANTUS (GLARGINE) 1 /0.01ml (100units/ml) SC SCH (21:52)
[2020-10-05] VITALS (98 sets, daily range): BP systolic 104–166; BP diastolic 26–93
[2020-10-05] MEDS: MIDAZOLAM DRIP 50 mg/50mL 50 ML IV SCH ×2 (01:15→11:15)
[2020-10-05] MEDS: ACCU-CHEK COMFORT CURVE STRIP VI SCH ×7 (04:00→23:57)
[2020-10-05 04:33] LABS: Basophils # (auto) 0 10 ^3/uL (0-0.2); Basophils % (auto) 0.4 % (0.0-2.0); Eosinophils # (auto) 0.3 10 ^3/uL (0-0.8); Hematocrit 26.5 % (36.0-46.0); Hemoglobin 8.7 g/dL (12.2-16.2); Lymphocytes % (auto) 8.8 % (10.0-50.0); Mean Corpuscular Hemoglobin 29.1 pg (28.0-32.0); Mean Corpuscular Hgb Conc. 32.9 g/dL (32.0-36.0); Mean Corpuscular Volume 88.5 fL (80.0-100.0); Monocytes # (auto) 1.2 10 ^3/uL (0-1.3); Monocytes % (auto) 10.9 % (0.0-12.0); Neutrophils # (auto) 8.7 10 ^3/uL (1.6-8.6); Neutrophils % (auto) 76.9 % (37.0-80.0); Platelet Count (auto) 249 10^3/uL (140-450); Red Blood Cells 2.99 10^6/uL (4.0-5.20); White Blood Cell 11.4 10^3/uL (4.4-10.8)
[2020-10-05 04:41] LABS: Albumin 2.5 g/dL (3.4-5.0); Magnesium 2.6 mg/dL (1.6-2.6); Potassium 3.6 mmol/L (3.5-5.1)
[2020-10-05 04:45] LABS: Red Cell Distribution Width 20.3 % (11.8-14.3)
[2020-10-05 04:47] LABS: BUN/Creatinine Ratio 34.9; Total Protein 6.5 g/dL (6.4-8.2)
[2020-10-05] MEDS: InsuLIN REG 1unit/0.01ml Soln (100units/ml) SC SCH ×6 (05:42→20:19)
[2020-10-05] MEDS: HEPARIN SODIUM (PORCINE) 5000 UNITS/ML 1ML VIAL SC SCH ×3 (05:43→21:53)
[2020-10-05] MEDS: PANTOPRAZOLE 40 MG/10 ML VIAL INJ IV SCH ×2 (09:30→21:52)
[2020-10-05] MEDS: FUROSEMIDE 40 MG/4 ML VIAL IV SCH (09:33)
[2020-10-05] MEDS: PROPOFOL 100 ML IV SCH ×2 (11:55→18:04)
[2020-10-05] MEDS: NOREPINEPHRINE 8 MG/250ML KIT 250 ML IV SCH (16:45)
[2020-10-05] MEDS: INSULIN LANTUS (GLARGINE) 1 /0.01ml (100units/ml) SC SCH (21:52)
[2020-10-06] VITALS (104 sets, daily range): BP systolic 107–171; BP diastolic 30–81
[2020-10-06] MEDS: InsuLIN REG 1unit/0.01ml Soln (100units/ml) SC SCH ×6 (00:02→20:18)
[2020-10-06] MEDS: PROPOFOL 100 ML IV SCH ×6 (00:03→21:59)
[2020-10-06] MEDS: ACCU-CHEK COMFORT CURVE STRIP VI SCH ×5 (03:40→20:16)
[2020-10-06 04:43] LABS: Basophils # (auto) 0 10 ^3/uL (0-0.2); Basophils % (auto) 0.3 % (0.0-2.0); Eosinophils # (auto) 0.3 10 ^3/uL (0-0.8); Eosinophils % (auto) 3.4 % (0.0-7.0); Hematocrit 26.3 % (36.0-46.0); Hemoglobin 8.7 g/dL (12.2-16.2); Lymphocytes # (auto) 0.7 10 ^3/uL (0.4-5.4); Lymphocytes % (auto) 7.3 % (10.0-50.0); Mean Corpuscular Hemoglobin 29.1 pg (28.0-32.0); Mean Corpuscular Hgb Conc. 33.1 g/dL (32.0-36.0); Mean Corpuscular Volume 88.1 fL (80.0-100.0); Monocytes % (auto) 10.1 % (0.0-12.0); Neutrophils # (auto) 7.9 10 ^3/uL (1.6-8.6); Neutrophils % (auto) 78.9 % (37.0-80.0); Platelet Count (auto) 254 10^3/uL (140-450); Red Blood Cells 2.98 10^6/uL (4.0-5.20); Red Cell Distribution Width 19.3 % (11.8-14.3)
[2020-10-06 04:57] LABS: Albumin 2.5 g/dL (3.4-5.0); Calcium 9.1 mg/dL (8.5-10.1); Magnesium 2.5 mg/dL (1.6-2.6); Potassium 3.3 mmol/L (3.5-5.1)
[2020-10-06 05:01] LABS: BUN/Creatinine Ratio 35.2; Bilirubin, Total 0.9 mg/dL (0.2-1.0); Total Protein 6.6 g/dL (6.4-8.2)
[2020-10-06] MEDS: HEPARIN SODIUM (PORCINE) 5000 UNITS/ML 1ML VIAL SC SCH ×3 (06:00→21:33)
[2020-10-06 06:09] LABS: INR 1.09 (0.9-1.15); Partial Thromboplastin Time 28.8 sec (23.0-31.2)
[2020-10-06] MEDS: MIDAZOLAM DRIP 50 mg/50mL 50 ML IV SCH ×3 (07:15→17:03)
[2020-10-06] MEDS ORDERED: POTASSIUM CHL 20MEQ/100ML 200 ML IV ONE (07:56)
[2020-10-06] MEDS: POTASSIUM CHL 20MEQ/100ML 100 ML IV SCH ×2 (08:21→09:47)
[2020-10-06] MEDS ORDERED: ACETYLCYSTEINE 10 %(100MG/ML) SOL 4ML ONE (08:29)
[2020-10-06] MEDS ORDERED: ACETYLCYSTEINE 10 %(100MG/ML) SOL 4ML NEB ONE (08:30)
[2020-10-06] MEDS ORDERED: BENZOCAINE (DENTAL) 20 % SPRAY 60ML MT ONE (08:31)
[2020-10-06] MEDS ORDERED: LIDOCAINE 2%HCL (LOCAL ANESTH.) INJ 20ML MDV ONE (08:31)
[2020-10-06] MEDS ORDERED: SODIUM CHLORIDE LOCK 30 ML ONE (08:31)
[2020-10-06] MEDS ORDERED: MIDAZOLAM HCL 5 MG/ML-1ML VIAL ONE (08:32)
[2020-10-06] MEDS ORDERED: fentaNYL CITRATE 100 MCG/2 ML VL ONE (08:32)
[2020-10-06] MEDS ORDERED: EPINEPHrine HCL 1 MG/1 ML AMP ONE (08:32)
[2020-10-06] MEDS ORDERED: LIDOCAINE HCL 2% TOP JELLY 5ML TOP ONE (08:32)
[2020-10-06] MEDS ORDERED: EPINEPHrine HCL 1 MG/10 ML SYRG ONE (08:33)
[2020-10-06] MEDS: FUROSEMIDE 40 MG/4 ML VIAL IV SCH (09:47)
[2020-10-06] MEDS: PANTOPRAZOLE 40 MG/10 ML VIAL INJ IV SCH ×2 (09:48→21:48)
[2020-10-06] MEDS: NOREPINEPHRINE 8 MG/250ML KIT 250 ML IV SCH (16:45)
[2020-10-06] MEDS: PIPERACILLIN-TAZOB 3.375GM 100 ML IV SCH (21:48)
[2020-10-06] MEDS: INSULIN LANTUS (GLARGINE) 1 /0.01ml (100units/ml) SC SCH (21:49)
[2020-10-07] VITALS (102 sets, daily range): BP systolic 91–166; BP diastolic 27–58
[2020-10-07] MEDS: ACCU-CHEK COMFORT CURVE STRIP VI SCH ×6 (00:16→20:39)
[2020-10-07] MEDS: InsuLIN REG 1unit/0.01ml Soln (100units/ml) SC SCH ×6 (00:16→20:41)
[2020-10-07] MEDS: PROPOFOL 100 ML IV SCH ×5 (01:03→23:20)
[2020-10-07 04:15] LABS: Basophils # (auto) 0 10 ^3/uL (0-0.2); Basophils % (auto) 0.4 % (0.0-2.0); Eosinophils # (auto) 0.5 10 ^3/uL (0-0.8); Eosinophils % (auto) 5.1 % (0.0-7.0); Hemoglobin 8.9 g/dL (12.2-16.2); Lymphocytes % (auto) 10.9 % (10.0-50.0); Mean Corpuscular Hemoglobin 29.3 pg (28.0-32.0); Mean Corpuscular Volume 88.7 fL (80.0-100.0); Monocytes # (auto) 1.1 10 ^3/uL (0-1.3); Monocytes % (auto) 11.9 % (0.0-12.0); Neutrophils # (auto) 6.8 10 ^3/uL (1.6-8.6); Neutrophils % (auto) 71.7 % (37.0-80.0); Nucleated Red Blood Cells % 0.1 %; Platelet Count (auto) 281 10^3/uL (140-450); Red Blood Cells 3.05 10^6/uL (4.0-5.20); White Blood Cell 9.5 10^3/uL (4.4-10.8)
[2020-10-07] MEDS: HEPARIN SODIUM (PORCINE) 5000 UNITS/ML 1ML VIAL SC SCH ×2 (06:00→09:47)
[2020-10-07] MEDS: PIPERACILLIN-TAZOB 3.375GM 100 ML IV SCH ×3 (06:07→22:19)
[2020-10-07 06:53] LABS: Potassium 4.1 mmol/L (3.5-5.1)
[2020-10-07] MEDS: MIDAZOLAM DRIP 50 mg/50mL 50 ML IV SCH ×2 (07:00→09:47)
[2020-10-07 07:08] LABS: Albumin 2.5 g/dL (3.4-5.0); BUN/Creatinine Ratio 32.2; Bilirubin, Total 0.8 mg/dL (0.2-1.0); Calcium 9.1 mg/dL (8.5-10.1); Total Protein 6.7 g/dL (6.4-8.2)
[2020-10-07] MEDS: PANTOPRAZOLE 40 MG/10 ML VIAL INJ IV SCH ×2 (09:39→22:19)
[2020-10-07] MEDS: FUROSEMIDE 40 MG/4 ML VIAL IV SCH (09:39)
[2020-10-07] MEDS: NOREPINEPHRINE 8 MG/250ML KIT 250 ML IV SCH (09:47)
[2020-10-07] MEDS: DOCUSATE ORAL LIQUID 100 MG/10 ML UD GT SCH (22:19)
[2020-10-07] MEDS: INSULIN LANTUS (GLARGINE) 1 /0.01ml (100units/ml) SC SCH (22:30)
[2020-10-08] VITALS (91 sets, daily range): BP systolic 89–169; BP diastolic 34–94
[2020-10-08] MEDS: ACCU-CHEK COMFORT CURVE STRIP VI SCH ×6 (00:24→20:00)
[2020-10-08] MEDS: InsuLIN REG 1unit/0.01ml Soln (100units/ml) SC SCH ×6 (00:25→20:44)
[2020-10-08] MEDS: PROPOFOL 100 ML IV SCH ×3 (04:01→21:46)
[2020-10-08 04:07] LABS: Basophils # (auto) 0 10 ^3/uL (0-0.2); Basophils % (auto) 0.4 % (0.0-2.0); Eosinophils # (auto) 0.4 10 ^3/uL (0-0.8); Eosinophils % (auto) 4.5 % (0.0-7.0); Hematocrit 27.3 % (36.0-46.0); Hemoglobin 8.9 g/dL (12.2-16.2); Lymphocytes # (auto) 0.9 10 ^3/uL (0.4-5.4); Lymphocytes % (auto) 11.3 % (10.0-50.0); Mean Corpuscular Hemoglobin 28.9 pg (28.0-32.0); Mean Corpuscular Hgb Conc. 32.6 g/dL (32.0-36.0); Mean Corpuscular Volume 88.7 fL (80.0-100.0); Monocytes # (auto) 0.9 10 ^3/uL (0-1.3); Monocytes % (auto) 11.5 % (0.0-12.0); Neutrophils # (auto) 5.8 10 ^3/uL (1.6-8.6); Neutrophils % (auto) 72.3 % (37.0-80.0); Platelet Count (auto) 257 10^3/uL (140-450); Red Blood Cells 3.08 10^6/uL (4.0-5.20); Red Cell Distribution Width 18.3 % (11.8-14.3)
[2020-10-08] MEDS: PIPERACILLIN-TAZOB 3.375GM 100 ML IV SCH ×3 (06:42→21:44)
[2020-10-08 08:14] LABS: Albumin 2.5 g/dL (3.4-5.0); Calcium 9.1 mg/dL (8.5-10.1); Potassium 3.8 mmol/L (3.5-5.1)
[2020-10-08 08:17] LABS: BUN/Creatinine Ratio 32.1; Bilirubin, Total 0.7 mg/dL (0.2-1.0)
[2020-10-08] MEDS: FUROSEMIDE 40 MG/4 ML VIAL IV SCH (10:20)
[2020-10-08] MEDS: DOCUSATE ORAL LIQUID 100 MG/10 ML UD GT SCH ×2 (10:20→21:44)
[2020-10-08] MEDS: PANTOPRAZOLE 40 MG/10 ML VIAL INJ IV SCH ×2 (10:20→21:44)
[2020-10-08] MEDS: FREE WATER GT SCH ×3 (12:10→23:59)
[2020-10-08] MEDS ORDERED: LACTULOSE 20Gm/30ML SOLN PO ONE (13:00)
[2020-10-08] MEDS: NOREPINEPHRINE 8 MG/250ML KIT 250 ML IV SCH (16:45)
[2020-10-08] MEDS: INSULIN LANTUS (GLARGINE) 1 /0.01ml (100units/ml) SC SCH (21:45)
[2020-10-09] VITALS (95 sets, daily range): BP systolic 109–161; BP diastolic 35–87
[2020-10-09] MEDS: PROPOFOL 100 ML IV SCH ×5 (01:39→22:48)
[2020-10-09 04:19] LABS: Basophils # (auto) 0.1 10 ^3/uL (0-0.2); Basophils % (auto) 0.5 % (0.0-2.0); Eosinophils # (auto) 0.4 10 ^3/uL (0-0.8); Eosinophils % (auto) 3.8 % (0.0-7.0); Hemoglobin 7.7 g/dL (12.2-16.2); Lymphocytes # (auto) 0.8 10 ^3/uL (0.4-5.4); Lymphocytes % (auto) 8.5 % (10.0-50.0); Mean Corpuscular Hemoglobin 28.4 pg (28.0-32.0); Mean Corpuscular Hgb Conc. 32.1 g/dL (32.0-36.0); Mean Corpuscular Volume 88.5 fL (80.0-100.0); Monocytes % (auto) 10.5 % (0.0-12.0); Neutrophils # (auto) 7.1 10 ^3/uL (1.6-8.6); Neutrophils % (auto) 76.7 % (37.0-80.0); Nucleated Red Blood Cells % 0.1 %; Platelet Count (auto) 235 10^3/uL (140-450); Red Blood Cells 2.71 10^6/uL (4.0-5.20); White Blood Cell 9.3 10^3/uL (4.4-10.8)
[2020-10-09 04:35] LABS: BUN/Creatinine Ratio 33.3; Calcium 7.9 mg/dL (8.5-10.1); Magnesium 2.1 mg/dL (1.6-2.6); Potassium 3.2 mmol/L (3.5-5.1)
[2020-10-09 04:38] LABS: Bilirubin, Total 0.7 mg/dL (0.2-1.0); Total Protein 6.1 g/dL (6.4-8.2)
[2020-10-09] MEDS: ACCU-CHEK COMFORT CURVE STRIP VI SCH ×7 (05:00→23:37)
[2020-10-09] MEDS: InsuLIN REG 1unit/0.01ml Soln (100units/ml) SC SCH ×7 (05:46→23:37)
[2020-10-09] MEDS: FREE WATER GT SCH ×4 (05:46→23:37)
[2020-10-09] MEDS: PIPERACILLIN-TAZOB 3.375GM 100 ML IV SCH ×3 (07:10→21:42)
[2020-10-09] MEDS: POTASSIUM CHL 20MEQ/100ML 100 ML IV SCH ×2 (09:15→11:05)
[2020-10-09] MEDS: FUROSEMIDE 40 MG/4 ML VIAL IV SCH (09:35)
[2020-10-09] MEDS: PANTOPRAZOLE 40 MG/10 ML VIAL INJ IV SCH ×2 (09:35→20:31)
[2020-10-09] MEDS: DOCUSATE ORAL LIQUID 100 MG/10 ML UD GT SCH ×2 (09:36→21:41)
[2020-10-09] MEDS: Glucerna 1.2 Cal 1Liter BOTTLE GT SCH (11:40)
[2020-10-09 12:31] LABS: Basophils # (auto) 0.1 10 ^3/uL (0-0.2); Basophils % (auto) 0.5 % (0.0-2.0); Eosinophils # (auto) 0.4 10 ^3/uL (0-0.8); Eosinophils % (auto) 2.7 % (0.0-7.0); Hematocrit 27.3 % (36.0-46.0); Hemoglobin 8.7 g/dL (12.2-16.2); Lymphocytes # (auto) 1.1 10 ^3/uL (0.4-5.4); Lymphocytes % (auto) 8.1 % (10.0-50.0); Mean Corpuscular Hemoglobin 28.2 pg (28.0-32.0); Mean Corpuscular Hgb Conc. 31.9 g/dL (32.0-36.0); Mean Corpuscular Volume 88.1 fL (80.0-100.0); Monocytes % (auto) 7.2 % (0.0-12.0); Neutrophils # (auto) 10.9 10 ^3/uL (1.6-8.6); Neutrophils % (auto) 81.5 % (37.0-80.0); Platelet Count (auto) 268 10^3/uL (140-450); Red Cell Distribution Width 17.8 % (11.8-14.3); White Blood Cell 13.3 10^3/uL (4.4-10.8)
[2020-10-09] MEDS: PANTOPRAZOLE 40mg/50ML NS AE 50 ML IV SCH ×3 (13:14→21:42)
[2020-10-09] MEDS: MIDAZOLAM DRIP 50 mg/50mL 50 ML IV SCH ×2 (16:00→16:20)
[2020-10-09] MEDS: NOREPINEPHRINE 8 MG/250ML KIT 250 ML IV SCH (16:22)
[2020-10-09] MEDS ORDERED: POTASSIUM CHL 20MEQ/100ML 100 ML IV SCH (17:00)
[2020-10-09] MEDS: INSULIN LANTUS (GLARGINE) 1 /0.01ml (100units/ml) SC SCH (20:30)
[2020-10-09] MEDS: BUMETANIDE 2.5mg/10ml (0.25 mg/ml) INJ IV SCH (21:42)
[2020-10-10] VITALS (99 sets, daily range): BP systolic 101–154; BP diastolic 15–113
[2020-10-10] MEDS: FREE WATER GT SCH ×2 (02:21→11:35)
[2020-10-10] MEDS: PROPOFOL 100 ML IV SCH ×6 (03:29→22:23)
[2020-10-10] MEDS: PANTOPRAZOLE 40mg/50ML NS AE 50 ML IV SCH ×5 (03:59→22:20)
[2020-10-10] MEDS: ACCU-CHEK COMFORT CURVE STRIP VI SCH ×5 (04:00→20:00)
[2020-10-10] MEDS: InsuLIN REG 1unit/0.01ml Soln (100units/ml) SC SCH ×5 (04:00→20:00)
[2020-10-10 04:44] LABS: Basophils # (auto) 0.1 10 ^3/uL (0-0.2); Basophils % (auto) 0.5 % (0.0-2.0); Eosinophils # (auto) 0.5 10 ^3/uL (0-0.8); Hematocrit 27.3 % (36.0-46.0); Hemoglobin 8.9 g/dL (12.2-16.2); Lymphocytes % (auto) 9.3 % (10.0-50.0); Mean Corpuscular Hemoglobin 28.6 pg (28.0-32.0); Mean Corpuscular Hgb Conc. 32.7 g/dL (32.0-36.0); Mean Corpuscular Volume 87.3 fL (80.0-100.0); Monocytes # (auto) 0.8 10 ^3/uL (0-1.3); Monocytes % (auto) 7.4 % (0.0-12.0); Neutrophils # (auto) 8.2 10 ^3/uL (1.6-8.6); Neutrophils % (auto) 77.8 % (37.0-80.0); Platelet Count (auto) 252 10^3/uL (140-450); Red Blood Cells 3.12 10^6/uL (4.0-5.20); White Blood Cell 10.6 10^3/uL (4.4-10.8)
[2020-10-10 05:04] LABS: Albumin 2.4 g/dL (3.4-5.0); Magnesium 2.7 mg/dL (1.6-2.6); Potassium 4.1 mmol/L (3.5-5.1)
[2020-10-10 05:07] LABS: BUN/Creatinine Ratio 30.7; Bilirubin, Total 0.9 mg/dL (0.2-1.0)
[2020-10-10] MEDS: BUMETANIDE 2.5mg/10ml (0.25 mg/ml) INJ IV SCH (05:45)
[2020-10-10] MEDS: PIPERACILLIN-TAZOB 3.375GM 100 ML IV SCH ×3 (05:46→22:19)
[2020-10-10] MEDS: MIDAZOLAM DRIP 50 mg/50mL 50 ML IV SCH ×2 (07:30→11:15)
[2020-10-10] MEDS: PANTOPRAZOLE 40 MG/10 ML VIAL INJ IV SCH ×2 (09:14→22:19)
[2020-10-10] MEDS: DOCUSATE ORAL LIQUID 100 MG/10 ML UD GT SCH ×2 (09:14→22:00)
[2020-10-10] MEDS: Glucerna 1.2 Cal 1Liter BOTTLE GT SCH (09:14)
[2020-10-10] MEDS ORDERED: diphenhdrAMINE HCL 50 MG/1 ML VL ONE (14:00)
[2020-10-10] MEDS ORDERED: MIDAZOLAM HCL 5 MG/ML-1ML VIAL ONE (14:00)
[2020-10-10] MEDS ORDERED: fentaNYL CITRATE 100 MCG/2 ML VL ONE (14:00)
[2020-10-10] MEDS: NOREPINEPHRINE 8 MG/250ML KIT 250 ML IV SCH (16:03)
[2020-10-10] MEDS: INSULIN LANTUS (GLARGINE) 1 /0.01ml (100units/ml) SC SCH (20:50)
[2020-10-11] VITALS (88 sets, daily range): BP systolic 103–185; BP diastolic 24–69
[2020-10-11] MEDS: PROPOFOL 100 ML IV SCH ×5 (03:22→23:12)
[2020-10-11] MEDS: PANTOPRAZOLE 40mg/50ML NS AE 50 ML IV SCH ×4 (04:15→23:11)
[2020-10-11] MEDS: ACCU-CHEK COMFORT CURVE STRIP VI SCH ×7 (04:16→23:58)
[2020-10-11] MEDS: InsuLIN REG 1unit/0.01ml Soln (100units/ml) SC SCH ×7 (04:17→23:55)
[2020-10-11 04:25] LABS: Eosinophils % (auto) 2.7 % (0.0-7.0); Lymphocytes # (auto) 0.9 10 ^3/uL (0.4-5.4); Neutrophils # (auto) 10.6 10 ^3/uL (1.6-8.6); Platelet Count (auto) 253 10^3/uL (140-450); Red Cell Distribution Width 17.8 % (11.8-14.3); White Blood Cell 12.8 10^3/uL (4.4-10.8)
[2020-10-11 04:27] LABS: Basophils # (auto) 0 10 ^3/uL (0-0.2); Basophils % (auto) 0.3 % (0.0-2.0); Eosinophils # (auto) 0.4 10 ^3/uL (0-0.8); Hematocrit 25.7 % (36.0-46.0); Hemoglobin 8.3 g/dL (12.2-16.2); Lymphocytes % (auto) 7.3 % (10.0-50.0); Mean Corpuscular Hemoglobin 28.1 pg (28.0-32.0); Mean Corpuscular Hgb Conc. 32.2 g/dL (32.0-36.0); Mean Corpuscular Volume 87.3 fL (80.0-100.0); Monocytes # (auto) 0.8 10 ^3/uL (0-1.3); Monocytes % (auto) 6.6 % (0.0-12.0); Neutrophils % (auto) 83.1 % (37.0-80.0); Nucleated Red Blood Cells % 0.1 %; Red Blood Cells 2.95 10^6/uL (4.0-5.20)
[2020-10-11 04:39] LABS: Albumin 2.2 g/dL (3.4-5.0); Calcium 8.6 mg/dL (8.5-10.1); Potassium 4.1 mmol/L (3.5-5.1)
[2020-10-11 04:42] LABS: BUN/Creatinine Ratio 30.1; Bilirubin, Total 0.8 mg/dL (0.2-1.0); Total Protein 6.8 g/dL (6.4-8.2)
[2020-10-11] MEDS: PIPERACILLIN-TAZOB 3.375GM 100 ML IV SCH (05:04)
[2020-10-11 05:06] LABS: Protein, Urine 23.2 mg/dL (0.0-11.9)
[2020-10-11 05:07] LABS: Urine Bacteria NONE SEEN /hpf (None Seen); Urine Blood Negative /uL (Negative); Urine Specific Gravity 1.024 (1.001-1.035); Urine WBC 2 /hpf (0 - 5)
[2020-10-11] MEDS: MIDAZOLAM DRIP 50 mg/50mL 50 ML IV SCH ×3 (07:15→16:16)
[2020-10-11] MEDS: SOD CHL 0.45% 1,000 ML IV SCH ×2 (07:53→20:37)
[2020-10-11] MEDS: PANTOPRAZOLE 40 MG/10 ML VIAL INJ IV SCH ×2 (08:06→22:00)
[2020-10-11] MEDS: Glucerna 1.2 Cal 1Liter BOTTLE GT SCH (08:06)
[2020-10-11] MEDS: DOCUSATE ORAL LIQUID 100 MG/10 ML UD GT SCH ×2 (08:06→20:37)
[2020-10-11] MEDS: PIPERACILLIN-TAZOB 2.25GM 50 ML IV SCH ×2 (12:35→18:34)
[2020-10-11] MEDS: methylPREDNISolone SOD SUCC 40 MG/ML VL IV SCH ×2 (13:49→21:15)
[2020-10-11] MEDS: NOREPINEPHRINE 8 MG/250ML KIT 250 ML IV SCH (16:16)
[2020-10-11] MEDS: INSULIN LANTUS (GLARGINE) 1 /0.01ml (100units/ml) SC SCH (21:02)
[2020-10-12] VITALS (54 sets, daily range): BP systolic 123–174; BP diastolic 30–62
[2020-10-12] MEDS: PIPERACILLIN-TAZOB 2.25GM 50 ML IV SCH ×5 (00:28→23:59)
[2020-10-12] MEDS: MIDAZOLAM DRIP 50 mg/50mL 50 ML IV SCH ×2 (03:15→10:45)
[2020-10-12 04:00] LABS: White Blood Cell 12.3 10^3/uL (4.4-10.8)
[2020-10-12 04:01] LABS: Hematocrit 24.5 % (36.0-46.0); Mean Corpuscular Hemoglobin 28.3 pg (28.0-32.0); Mean Corpuscular Hgb Conc. 32.5 g/dL (32.0-36.0); Mean Corpuscular Volume 86.9 fL (80.0-100.0); Platelet Count (auto) 230 10^3/uL (140-450); Red Blood Cells 2.82 10^6/uL (4.0-5.20); Red Cell Distribution Width 17.4 % (11.8-14.3)
[2020-10-12 04:07] LABS: Basophils % (manual) 0 (0.0-2.0); Blast Cells 0; Metamyelocytes % 0; Myelocytes % 0; Promyelocytes % 0; Reactive Lymphocytes 0
[2020-10-12] MEDS: ACCU-CHEK COMFORT CURVE STRIP VI SCH ×5 (04:18→20:02)
[2020-10-12] MEDS: InsuLIN REG 1unit/0.01ml Soln (100units/ml) SC SCH ×5 (04:18→20:03)
[2020-10-12] MEDS: PANTOPRAZOLE 40mg/50ML NS AE 50 ML IV SCH ×3 (04:19→10:44)
[2020-10-12 04:31] LABS: Albumin 2.2 g/dL (3.4-5.0); Calcium 8.5 mg/dL (8.5-10.1); Magnesium 3.2 mg/dL (1.6-2.6); Potassium 4.2 mmol/L (3.5-5.1)
[2020-10-12 04:35] LABS: BUN/Creatinine Ratio 32.6; Bilirubin, Total 0.8 mg/dL (0.2-1.0); Total Protein 6.8 g/dL (6.4-8.2)
[2020-10-12 05:08] LABS: Band Neutrophils % (manual) 2; Eosinophils % (manual) 1 (0-7); Lymphocytes % (manual) 4 (10.0-50.0); Monocytes % (manual) 1 (0-12)
[2020-10-12] MEDS: methylPREDNISolone SOD SUCC 40 MG/ML VL IV SCH ×3 (06:14→21:49)
[2020-10-12] MEDS: Glucerna 1.2 Cal 1Liter BOTTLE GT SCH ×2 (10:00→12:50)
[2020-10-12] MEDS: PANTOPRAZOLE 40 MG/10 ML VIAL INJ IV SCH ×2 (10:00→21:48)
[2020-10-12] MEDS: DOCUSATE ORAL LIQUID 100 MG/10 ML UD GT SCH ×2 (10:00→21:48)
[2020-10-12] MEDS: SOD CHL 0.45% 1,000 ML IV SCH ×2 (10:44→23:59)
[2020-10-12] MEDS: NOREPINEPHRINE 8 MG/250ML KIT 250 ML IV SCH (10:45)
[2020-10-12] MEDS: hydrALAZINE HCL 20 MG/ML VL IV PRN (12:41)
[2020-10-12] MEDS: PROPOFOL 100 ML IV SCH ×2 (12:41→15:18)
[2020-10-12] MEDS: IPRATROPIUM BROM 0.5 MG/2.5ML INH SOL NEB SCH (18:24)
[2020-10-12] MEDS: ALBUTEROL SULF 2.5 MG/0.5ML(0.5%) NEB SOLN NEB SCH (18:24)
[2020-10-12] MEDS: ACETYLCYSTEINE 10 %(100MG/ML) SOL 4ML NEB SCH (18:25)
[2020-10-12] MEDS: INSULIN LANTUS (GLARGINE) 1 /0.01ml (100units/ml) SC SCH (22:15)
[2020-10-13] VITALS (29 sets, daily range): BP systolic 134–168; BP diastolic 32–90
[2020-10-13] MEDS: IPRATROPIUM BROM 0.5 MG/2.5ML INH SOL NEB SCH ×4 (00:03→18:54)
[2020-10-13] MEDS: ALBUTEROL SULF 2.5 MG/0.5ML(0.5%) NEB SOLN NEB SCH ×4 (00:03→18:55)
[2020-10-13] MEDS: ACCU-CHEK COMFORT CURVE STRIP VI SCH ×6 (03:37→20:06)
[2020-10-13] MEDS: InsuLIN REG 1unit/0.01ml Soln (100units/ml) SC SCH ×6 (03:37→20:09)
[2020-10-13] MEDS: methylPREDNISolone SOD SUCC 40 MG/ML VL IV SCH ×3 (05:43→22:00)
[2020-10-13] MEDS: PIPERACILLIN-TAZOB 2.25GM 50 ML IV SCH ×3 (05:43→17:48)
[2020-10-13] MEDS: ACETYLCYSTEINE 10 %(100MG/ML) SOL 4ML NEB SCH ×3 (08:01→18:54)
[2020-10-13 08:17] LABS: Hematocrit 21.7 % (36.0-46.0); Mean Corpuscular Hemoglobin 28.1 pg (28.0-32.0); Mean Corpuscular Hgb Conc. 32.4 g/dL (32.0-36.0); Mean Corpuscular Volume 86.7 fL (80.0-100.0); Platelet Count (auto) 280 10^3/uL (140-450); Red Blood Cells 2.51 10^6/uL (4.0-5.20); Red Cell Distribution Width 17.3 % (11.8-14.3); White Blood Cell 12.6 10^3/uL (4.4-10.8)
[2020-10-13 08:26] LABS: Albumin 2.3 g/dL (3.4-5.0); Calcium 8.4 mg/dL (8.5-10.1); Potassium 4.2 mmol/L (3.5-5.1)
[2020-10-13 08:29] LABS: BUN/Creatinine Ratio 46.9; Bilirubin, Total 0.6 mg/dL (0.2-1.0); Total Protein 6.7 g/dL (6.4-8.2)
[2020-10-13 08:30] LABS: Band Neutrophils % (manual) 0; Basophils % (manual) 0 (0.0-2.0); Blast Cells 0; Eosinophils % (manual) 0 (0-7); Metamyelocytes % 0; Monocytes % (manual) 0 (0-12); Promyelocytes % 0; Reactive Lymphocytes 0
[2020-10-13 09:51] LABS: Lymphocytes % (manual) 10 (10.0-50.0); Myelocytes % 1
[2020-10-13] MEDS: DOCUSATE ORAL LIQUID 100 MG/10 ML UD GT SCH ×2 (10:00→22:00)
[2020-10-13] MEDS: PANTOPRAZOLE 40 MG/10 ML VIAL INJ IV SCH ×2 (13:31→22:00)
[2020-10-13] MEDS: SOD CHL 0.45% 1,000 ML IV SCH (13:32)
[2020-10-13] MEDS: NOREPINEPHRINE 8 MG/250ML KIT 250 ML IV SCH (16:45)
[2020-10-13] MEDS: INSULIN LANTUS (GLARGINE) 1 /0.01ml (100units/ml) SC SCH (22:07)
[2020-10-14] VITALS (21 sets, daily range): BP systolic 138–175; BP diastolic 36–53
[2020-10-14] MEDS: SOD CHL 0.45% 1,000 ML IV SCH ×2 (00:12→15:50)
[2020-10-14] MEDS: ACCU-CHEK COMFORT CURVE STRIP VI SCH ×6 (00:12→20:00)
[2020-10-14] MEDS: PIPERACILLIN-TAZOB 2.25GM 50 ML IV SCH ×4 (00:12→17:35)
[2020-10-14] MEDS: InsuLIN REG 1unit/0.01ml Soln (100units/ml) SC SCH ×6 (00:43→21:55)
[2020-10-14] MEDS: IPRATROPIUM BROM 0.5 MG/2.5ML INH SOL NEB SCH ×4 (00:55→19:13)
[2020-10-14] MEDS: ALBUTEROL SULF 2.5 MG/0.5ML(0.5%) NEB SOLN NEB SCH ×4 (00:55→19:13)
[2020-10-14 04:13] LABS: Red Cell Distribution Width 16.5 % (11.8-14.3); White Blood Cell 13.8 10^3/uL (4.4-10.8)
[2020-10-14 04:14] LABS: Hemoglobin 7.5 g/dL (12.2-16.2); Mean Corpuscular Hemoglobin 28.8 pg (28.0-32.0); Mean Corpuscular Hgb Conc. 32.4 g/dL (32.0-36.0); Mean Corpuscular Volume 88.7 fL (80.0-100.0); Platelet Count (auto) 286 10^3/uL (140-450); Red Blood Cells 2.59 10^6/uL (4.0-5.20)
[2020-10-14 04:22] LABS: Basophils % (manual) 0 (0.0-2.0); Blast Cells 0; Eosinophils % (manual) 0 (0-7); Promyelocytes % 0; Reactive Lymphocytes 0
[2020-10-14 04:49] LABS: Band Neutrophils % (manual) 1; Lymphocytes % (manual) 5 (10.0-50.0); Metamyelocytes % 3; Monocytes % (manual) 2 (0-12); Myelocytes % 1
[2020-10-14] MEDS: methylPREDNISolone SOD SUCC 40 MG/ML VL IV SCH ×3 (06:00→21:45)
[2020-10-14] MEDS: ACETYLCYSTEINE 10 %(100MG/ML) SOL 4ML NEB SCH ×3 (06:34→19:12)
[2020-10-14] MEDS: PANTOPRAZOLE 40 MG/10 ML VIAL INJ IV SCH ×2 (09:32→21:45)
[2020-10-14] MEDS: hydrALAZINE HCL 20 MG/ML VL IV PRN (09:32)
[2020-10-14] MEDS: DOCUSATE ORAL LIQUID 100 MG/10 ML UD GT SCH ×2 (09:32→21:45)
[2020-10-14] MEDS: Glucerna 1.2 Cal 1Liter BOTTLE GT SCH (09:33)
[2020-10-14 09:48] LABS: Hematocrit 22.4 % (36.0-46.0); Hemoglobin 7.2 g/dL (12.2-16.2); Mean Corpuscular Hemoglobin 28.5 pg (28.0-32.0); Mean Corpuscular Hgb Conc. 32.1 g/dL (32.0-36.0); Mean Corpuscular Volume 88.9 fL (80.0-100.0); Platelet Count (auto) 302 10^3/uL (140-450); Red Blood Cells 2.53 10^6/uL (4.0-5.20); Red Cell Distribution Width 16.5 % (11.8-14.3); White Blood Cell 14.2 10^3/uL (4.4-10.8)
[2020-10-14 09:51] LABS: Basophils % (manual) 0 (0.0-2.0); Blast Cells 0; Eosinophils % (manual) 0 (0-7); Myelocytes % 0; Promyelocytes % 0; Reactive Lymphocytes 0
[2020-10-14 10:56] LABS: CRP High Sensitivity 2.42 mg/dL (< 0.3)
[2020-10-14 10:57] LABS: % Iron Saturation 69.6 % (15-50)
[2020-10-14] MEDS: NOREPINEPHRINE 8 MG/250ML KIT 250 ML IV SCH (11:59)
[2020-10-14 12:18] LABS: Band Neutrophils % (manual) 4; Lymphocytes % (manual) 7 (10.0-50.0); Metamyelocytes % 2; Monocytes % (manual) 2 (0-12)
[2020-10-14] MEDS: INSULIN LANTUS (GLARGINE) 1 /0.01ml (100units/ml) SC SCH (21:56)
[2020-10-15] VITALS (19 sets, daily range): BP systolic 148–182; BP diastolic 36–59
[2020-10-15] MEDS: PIPERACILLIN-TAZOB 2.25GM 50 ML IV SCH ×5 (00:03→21:30)
[2020-10-15] MEDS: InsuLIN REG 1unit/0.01ml Soln (100units/ml) SC SCH ×6 (00:10→20:18)
[2020-10-15] MEDS: ACCU-CHEK COMFORT CURVE STRIP VI SCH ×6 (00:11→20:19)
[2020-10-15] MEDS: IPRATROPIUM BROM 0.5 MG/2.5ML INH SOL NEB SCH ×4 (00:38→18:24)
[2020-10-15] MEDS: ALBUTEROL SULF 2.5 MG/0.5ML(0.5%) NEB SOLN NEB SCH ×4 (00:38→18:24)
[2020-10-15] MEDS: SOD CHL 0.45% 1,000 ML IV SCH ×3 (00:45→21:38)
[2020-10-15 03:54] LABS: Hematocrit 20.2 % (36.0-46.0); Mean Corpuscular Hgb Conc. 32.5 g/dL (32.0-36.0); Mean Corpuscular Volume 89.4 fL (80.0-100.0); Platelet Count (auto) 337 10^3/uL (140-450); Red Blood Cells 2.26 10^6/uL (4.0-5.20); Red Cell Distribution Width 17.4 % (11.8-14.3); White Blood Cell 15.9 10^3/uL (4.4-10.8)
[2020-10-15 04:00] LABS: Hemoglobin 6.6 g/dL (12.2-16.2)
[2020-10-15 04:02] LABS: Band Neutrophils % (manual) 0; Basophils % (manual) 0 (0.0-2.0); Blast Cells 0; Eosinophils % (manual) 0 (0-7); Metamyelocytes % 0; Monocytes % (manual) 0 (0-12); Promyelocytes % 0; Reactive Lymphocytes 0
[2020-10-15 04:12] LABS: Lymphocytes % (manual) 11 (10.0-50.0); Myelocytes % 2
[2020-10-15 04:14] LABS: BUN/Creatinine Ratio 64.7; Calcium 8.7 mg/dL (8.5-10.1); Potassium 4.5 mmol/L (3.5-5.1)
[2020-10-15] MEDS: methylPREDNISolone SOD SUCC 40 MG/ML VL IV SCH ×3 (05:22→21:24)
[2020-10-15] MEDS: ACETYLCYSTEINE 10 %(100MG/ML) SOL 4ML NEB SCH ×2 (06:30→12:48)
[2020-10-15] MEDS: hydrALAZINE HCL 20 MG/ML VL IV PRN (08:23)
[2020-10-15] MEDS: DOCUSATE ORAL LIQUID 100 MG/10 ML UD GT SCH ×2 (10:00→21:24)
[2020-10-15] MEDS: Glucerna 1.2 Cal 1Liter BOTTLE GT SCH (10:00)
[2020-10-15] MEDS: PANTOPRAZOLE 40 MG/10 ML VIAL INJ IV SCH ×2 (10:19→21:24)
[2020-10-15] MEDS: NOREPINEPHRINE 8 MG/250ML KIT 250 ML IV SCH (15:56)
[2020-10-15] MEDS: INSULIN LANTUS (GLARGINE) 1 /0.01ml (100units/ml) SC SCH (21:35)
[2020-10-15 22:26] LABS: Hematocrit 24.9 % (36.0-46.0); Mean Corpuscular Hemoglobin 28.7 pg (28.0-32.0); Mean Corpuscular Hgb Conc. 31.9 g/dL (32.0-36.0); Mean Corpuscular Volume 89.8 fL (80.0-100.0); Platelet Count (auto) 318 10^3/uL (140-450); Red Blood Cells 2.78 10^6/uL (4.0-5.20); Red Cell Distribution Width 17.8 % (11.8-14.3); White Blood Cell 17.2 10^3/uL (4.4-10.8)
[2020-10-15 22:40] LABS: Basophils % (manual) 0 (0.0-2.0); Blast Cells 0; Eosinophils % (manual) 0 (0-7); Myelocytes % 0; Promyelocytes % 0; Reactive Lymphocytes 0
[2020-10-15 23:30] LABS: Band Neutrophils % (manual) 4; Lymphocytes % (manual) 7 (10.0-50.0); Metamyelocytes % 1; Monocytes % (manual) 5 (0-12)
[2020-10-16] VITALS (18 sets, daily range): BP systolic 138–185; BP diastolic 32–62
[2020-10-16] MEDS: IPRATROPIUM BROM 0.5 MG/2.5ML INH SOL NEB SCH ×4 (00:39→19:07)
[2020-10-16] MEDS: ACETYLCYSTEINE 10 %(100MG/ML) SOL 4ML NEB SCH ×4 (00:39→19:07)
[2020-10-16] MEDS: ALBUTEROL SULF 2.5 MG/0.5ML(0.5%) NEB SOLN NEB SCH ×4 (00:39→19:07)
[2020-10-16] MEDS: InsuLIN REG 1unit/0.01ml Soln (100units/ml) SC SCH ×6 (01:18→20:21)
[2020-10-16] MEDS: ACCU-CHEK COMFORT CURVE STRIP VI SCH ×6 (03:41→20:19)
[2020-10-16 03:55] LABS: Hemoglobin 8.2 g/dL (12.2-16.2); Red Cell Distribution Width 17.2 % (11.8-14.3)
[2020-10-16 03:56] LABS: Hematocrit 25.4 % (36.0-46.0); Mean Corpuscular Hemoglobin 28.6 pg (28.0-32.0); Mean Corpuscular Hgb Conc. 32.3 g/dL (32.0-36.0); Mean Corpuscular Volume 88.5 fL (80.0-100.0); Platelet Count (auto) 335 10^3/uL (140-450); Red Blood Cells 2.87 10^6/uL (4.0-5.20); White Blood Cell 16.8 10^3/uL (4.4-10.8)
[2020-10-16 04:03] LABS: Basophils % (manual) 0 (0.0-2.0); Blast Cells 0; Eosinophils % (manual) 0 (0-7); Promyelocytes % 0; Reactive Lymphocytes 0
[2020-10-16 04:50] LABS: Band Neutrophils % (manual) 3; Lymphocytes % (manual) 6 (10.0-50.0); Metamyelocytes % 1; Myelocytes % 1
[2020-10-16 04:51] LABS: Monocytes % (manual) 3 (0-12)
[2020-10-16] MEDS: PIPERACILLIN-TAZOB 2.25GM 50 ML IV SCH ×3 (05:20→18:11)
[2020-10-16] MEDS: methylPREDNISolone SOD SUCC 40 MG/ML VL IV SCH ×3 (05:20→22:30)
[2020-10-16] MEDS: SOD CHL 0.45% 1,000 ML IV SCH ×2 (05:21→10:32)
[2020-10-16] MEDS: hydrALAZINE HCL 20 MG/ML VL IV PRN ×2 (05:23→10:30)
[2020-10-16] MEDS: PANTOPRAZOLE 40 MG/10 ML VIAL INJ IV SCH ×2 (09:43→22:32)
[2020-10-16] MEDS: CARVEDILOL 3.125 MG TAB PO SCH ×2 (09:43→22:00)
[2020-10-16] MEDS: DOCUSATE ORAL LIQUID 100 MG/10 ML UD GT SCH ×2 (10:00→22:30)
[2020-10-16 12:53] LABS: Ferritin 72.9 ng/mL (10-322)
[2020-10-16 12:54] LABS: Free T4 (Free Thyroxine) 0.91 ng/dL (0.89-1.76)
[2020-10-16 12:55] LABS: Folate (Folic Acid) 12.74 ng/mL (5.38-24)
[2020-10-16] MEDS: NOREPINEPHRINE 8 MG/250ML KIT 250 ML IV SCH (16:45)
[2020-10-16] MEDS: Glucerna 1.2 Cal 1Liter BOTTLE GT SCH (18:11)
[2020-10-16 22:13] LABS: Hemoglobin 7.6 g/dL (12.2-16.2); Red Cell Distribution Width 17.6 % (11.8-14.3)
[2020-10-16 22:14] LABS: Hematocrit 23.6 % (36.0-46.0); Mean Corpuscular Hemoglobin 28.5 pg (28.0-32.0); Mean Corpuscular Hgb Conc. 32.1 g/dL (32.0-36.0); Mean Corpuscular Volume 88.9 fL (80.0-100.0); Platelet Count (auto) 270 10^3/uL (140-450); Red Blood Cells 2.66 10^6/uL (4.0-5.20)
[2020-10-16 22:23] LABS: Basophils % (manual) 0 (0.0-2.0); Blast Cells 0; Eosinophils % (manual) 0 (0-7); Metamyelocytes % 0; Promyelocytes % 0; Reactive Lymphocytes 0
[2020-10-16] MEDS: INSULIN LANTUS (GLARGINE) 1 /0.01ml (100units/ml) SC SCH (22:48)
[2020-10-16 22:53] LABS: Band Neutrophils % (manual) 4; Lymphocytes % (manual) 8 (10.0-50.0); Monocytes % (manual) 6 (0-12); Myelocytes % 6
[2020-10-17] VITALS (21 sets, daily range): BP systolic 119–183; BP diastolic 38–61
[2020-10-17] MEDS: PIPERACILLIN-TAZOB 2.25GM 50 ML IV SCH ×5 (00:15→23:42)
[2020-10-17] MEDS: InsuLIN REG 1unit/0.01ml Soln (100units/ml) SC SCH ×7 (00:40→23:31)
[2020-10-17] MEDS: ACCU-CHEK COMFORT CURVE STRIP VI SCH ×7 (00:40→23:20)
[2020-10-17] MEDS: SOD CHL 0.45% 1,000 ML IV SCH (02:45)
[2020-10-17 04:01] LABS: Calcium 8.9 mg/dL (8.5-10.1); Potassium 4.7 mmol/L (3.5-5.1)
[2020-10-17] MEDS: hydrALAZINE HCL 20 MG/ML VL IV PRN (04:02)
[2020-10-17 04:04] LABS: BUN/Creatinine Ratio 59.6
[2020-10-17] MEDS: methylPREDNISolone SOD SUCC 40 MG/ML VL IV SCH ×3 (05:26→23:41)
[2020-10-17] MEDS: ALBUTEROL SULF 2.5 MG/0.5ML(0.5%) NEB SOLN NEB SCH ×3 (06:12→23:12)
[2020-10-17] MEDS: ACETYLCYSTEINE 10 %(100MG/ML) SOL 4ML NEB SCH ×3 (06:13→23:13)
[2020-10-17] MEDS: IPRATROPIUM BROM 0.5 MG/2.5ML INH SOL NEB SCH ×3 (06:13→23:12)
[2020-10-17] MEDS ORDERED: SOD CHL 0.45% 1,000 ML IV SCH (06:30)
[2020-10-17] MEDS: DOCUSATE ORAL LIQUID 100 MG/10 ML UD GT SCH ×2 (10:00→23:40)
[2020-10-17] MEDS: Glucerna 1.2 Cal 1Liter BOTTLE GT SCH (10:00)
[2020-10-17] MEDS: PANTOPRAZOLE 40 MG/10 ML VIAL INJ IV SCH ×2 (10:38→23:41)
[2020-10-17] MEDS: CARVEDILOL 3.125 MG TAB PO SCH ×2 (10:39→23:42)
[2020-10-17] MEDS: amLODIPine BESYLATE 5 MG TAB PO SCH (10:39)
[2020-10-17 11:28] LABS: Hemoglobin 8.2 g/dL (12.2-16.2)
[2020-10-17 11:30] LABS: Hematocrit 25.8 % (36.0-46.0); Mean Corpuscular Hemoglobin 28.5 pg (28.0-32.0); Mean Corpuscular Hgb Conc. 31.6 g/dL (32.0-36.0); Mean Corpuscular Volume 90.2 fL (80.0-100.0); Platelet Count (auto) 327 10^3/uL (140-450); Red Blood Cells 2.86 10^6/uL (4.0-5.20); Red Cell Distribution Width 17.5 % (11.8-14.3); White Blood Cell 15.9 10^3/uL (4.4-10.8)
[2020-10-17 11:47] LABS: Basophils % (manual) 0 (0.0-2.0); Blast Cells 0; Eosinophils % (manual) 0 (0-7); Promyelocytes % 0; Reactive Lymphocytes 0
[2020-10-17 12:43] LABS: Band Neutrophils % (manual) 2; Lymphocytes % (manual) 6 (10.0-50.0); Metamyelocytes % 1; Monocytes % (manual) 1 (0-12); Myelocytes % 2
[2020-10-17] MEDS: FREE WATER GT SCH ×2 (18:25→23:42)
[2020-10-17 23:17] LABS: Hematocrit 25.7 % (36.0-46.0); Hemoglobin 8.3 g/dL (12.2-16.2); Mean Corpuscular Hemoglobin 29.2 pg (28.0-32.0); Mean Corpuscular Hgb Conc. 32.5 g/dL (32.0-36.0); Platelet Count (auto) 287 10^3/uL (140-450); Red Blood Cells 2.86 10^6/uL (4.0-5.20); Red Cell Distribution Width 18.1 % (11.8-14.3); White Blood Cell 13.7 10^3/uL (4.4-10.8)
[2020-10-17 23:30] LABS: Band Neutrophils % (manual) 0; Basophils % (manual) 0 (0.0-2.0); Blast Cells 0; Eosinophils % (manual) 0 (0-7); Metamyelocytes % 0; Myelocytes % 0; Promyelocytes % 0; Reactive Lymphocytes 0
[2020-10-17] MEDS: INSULIN LANTUS (GLARGINE) 1 /0.01ml (100units/ml) SC SCH (23:31)
[2020-10-18] LABS: Lymphocytes % (manual) 6 (10.0-50.0); Monocytes % (manual) 6 (0-12)
[2020-10-18] MEDS: ACCU-CHEK COMFORT CURVE STRIP VI SCH ×5 (04:34→21:00)
[2020-10-18] MEDS: InsuLIN REG 1unit/0.01ml Soln (100units/ml) SC SCH ×5 (04:36→21:02)
[2020-10-18 05:00] VITALS: BP 155/59
[2020-10-18] MEDS: FREE WATER GT SCH ×4 (05:54→23:39)
[2020-10-18] MEDS: PIPERACILLIN-TAZOB 2.25GM 50 ML IV SCH ×4 (05:55→23:39)
[2020-10-18] MEDS: methylPREDNISolone SOD SUCC 40 MG/ML VL IV SCH ×3 (05:55→23:38)
[2020-10-18] MEDS: ACETYLCYSTEINE 10 %(100MG/ML) SOL 4ML NEB SCH ×3 (06:00→19:44)
[2020-10-18] MEDS: IPRATROPIUM BROM 0.5 MG/2.5ML INH SOL NEB SCH ×3 (07:23→19:44)
[2020-10-18] MEDS: ALBUTEROL SULF 2.5 MG/0.5ML(0.5%) NEB SOLN NEB SCH ×3 (07:23→19:44)
[2020-10-18 08:51] VITALS: BP 157/72
[2020-10-18 09:01] LABS: Basophils # (auto) 0 10 ^3/uL (0-0.2); Basophils % (auto) 0.2 % (0.0-2.0); Eosinophils # (auto) 0 10 ^3/uL (0-0.8); Hematocrit 25.4 % (36.0-46.0); Hemoglobin 8.1 g/dL (12.2-16.2); Lymphocytes # (auto) 0.6 10 ^3/uL (0.4-5.4); Lymphocytes % (auto) 4.3 % (10.0-50.0)
[2020-10-18 09:03] LABS: Mean Corpuscular Hemoglobin 28.6 pg (28.0-32.0); Mean Corpuscular Hgb Conc. 31.9 g/dL (32.0-36.0); Mean Corpuscular Volume 89.8 fL (80.0-100.0); Monocytes # (auto) 0.5 10 ^3/uL (0-1.3); Monocytes % (auto) 3.4 % (0.0-12.0); Neutrophils # (auto) 13.2 10 ^3/uL (1.6-8.6); Neutrophils % (auto) 92.1 % (37.0-80.0); Platelet Count (auto) 272 10^3/uL (140-450); Red Blood Cells 2.83 10^6/uL (4.0-5.20); Red Cell Distribution Width 18.5 % (11.8-14.3); White Blood Cell 14.3 10^3/uL (4.4-10.8)
[2020-10-18 09:16] LABS: Albumin 2.6 g/dL (3.4-5.0); Potassium 4.9 mmol/L (3.5-5.1)
[2020-10-18 09:20] LABS: BUN/Creatinine Ratio 52.3; Bilirubin, Total 0.8 mg/dL (0.2-1.0); Total Protein 6.4 g/dL (6.4-8.2)
[2020-10-18] MEDS: DOCUSATE ORAL LIQUID 100 MG/10 ML UD GT SCH ×2 (10:23→23:36)
[2020-10-18] MEDS: CARVEDILOL 3.125 MG TAB PO SCH ×2 (10:24→23:38)
[2020-10-18] MEDS: PANTOPRAZOLE 40 MG/10 ML VIAL INJ IV SCH ×2 (10:24→23:37)
[2020-10-18] MEDS: amLODIPine BESYLATE 5 MG TAB PO SCH (10:24)
[2020-10-18] MEDS: Glucerna 1.2 Cal 1Liter BOTTLE GT SCH (10:34)
[2020-10-18 12:56] VITALS: BP 159/80
[2020-10-18] MEDS: D5W 5% 1,000 ML IV SCH (16:47)
[2020-10-18 16:58] VITALS: BP 159/75
[2020-10-18 22:00] VITALS: BP 160/72
[2020-10-18 22:22] LABS: Basophils # (auto) 0 10 ^3/uL (0-0.2); Eosinophils # (auto) 0 10 ^3/uL (0-0.8); Hematocrit 24.5 % (36.0-46.0); Hemoglobin 8.2 g/dL (12.2-16.2); Lymphocytes # (auto) 0.8 10 ^3/uL (0.4-5.4); Lymphocytes % (auto) 6.5 % (10.0-50.0); Mean Corpuscular Hgb Conc. 33.4 g/dL (32.0-36.0); Mean Corpuscular Volume 89.9 fL (80.0-100.0); Monocytes # (auto) 0.7 10 ^3/uL (0-1.3); Monocytes % (auto) 5.4 % (0.0-12.0); Neutrophils # (auto) 10.7 10 ^3/uL (1.6-8.6); Neutrophils % (auto) 88.1 % (37.0-80.0); Nucleated Red Blood Cells % 0.2 %; Platelet Count (auto) 252 10^3/uL (140-450); Red Blood Cells 2.73 10^6/uL (4.0-5.20); Red Cell Distribution Width 17.8 % (11.8-14.3); White Blood Cell 12.1 10^3/uL (4.4-10.8)
[2020-10-19] MEDS: ACCU-CHEK COMFORT CURVE STRIP VI SCH ×6 (00:26→20:28)
[2020-10-19] MEDS: INSULIN LANTUS (GLARGINE) 1 /0.01ml (100units/ml) SC SCH ×2 (00:28→22:52)
[2020-10-19] MEDS: InsuLIN REG 1unit/0.01ml Soln (100units/ml) SC SCH ×6 (00:31→20:41)
[2020-10-19 05:00] VITALS: BP 158/76
[2020-10-19] MEDS: PIPERACILLIN-TAZOB 2.25GM 50 ML IV SCH ×3 (05:52→18:09)
[2020-10-19] MEDS: FREE WATER GT SCH ×3 (05:52→18:09)
[2020-10-19] MEDS: methylPREDNISolone SOD SUCC 40 MG/ML VL IV SCH ×3 (05:52→22:27)
[2020-10-19] MEDS: IPRATROPIUM BROM 0.5 MG/2.5ML INH SOL NEB SCH ×3 (06:44→22:49)
[2020-10-19] MEDS: ALBUTEROL SULF 2.5 MG/0.5ML(0.5%) NEB SOLN NEB SCH ×3 (06:44→22:49)
[2020-10-19] MEDS: ACETYLCYSTEINE 10 %(100MG/ML) SOL 4ML NEB SCH ×3 (06:44→22:50)
[2020-10-19] MEDS: hydrALAZINE HCL 20 MG/ML VL IV PRN (08:27)
[2020-10-19 09:00] VITALS: BP 186/82
[2020-10-19] MEDS: DOCUSATE ORAL LIQUID 100 MG/10 ML UD GT SCH ×2 (10:00→22:27)
[2020-10-19] MEDS: D5W 5% 1,000 ML IV SCH (12:15)
[2020-10-19] MEDS: PANTOPRAZOLE 40 MG/10 ML VIAL INJ IV SCH ×2 (12:35→22:27)
[2020-10-19] MEDS: amLODIPine BESYLATE 5 MG TAB PO SCH (12:37)
[2020-10-19] MEDS: CARVEDILOL 3.125 MG TAB PO SCH ×2 (12:37→22:29)
[2020-10-19 12:39] VITALS: BP 158/69
[2020-10-19 13:54] LABS: Basophils # (auto) 0 10 ^3/uL (0-0.2); Basophils % (auto) 0.1 % (0.0-2.0); Eosinophils # (auto) 0 10 ^3/uL (0-0.8); Lymphocytes # (auto) 0.7 10 ^3/uL (0.4-5.4); Monocytes # (auto) 0.6 10 ^3/uL (0-1.3); Monocytes % (auto) 5.1 % (0.0-12.0); Neutrophils # (auto) 9.9 10 ^3/uL (1.6-8.6); Platelet Count (auto) 231 10^3/uL (140-450); White Blood Cell 11.1 10^3/uL (4.4-10.8)
[2020-10-19 13:56] LABS: Hematocrit 24.6 % (36.0-46.0); Hemoglobin 7.8 g/dL (12.2-16.2); Lymphocytes % (auto) 5.9 % (10.0-50.0); Mean Corpuscular Hgb Conc. 31.8 g/dL (32.0-36.0); Mean Corpuscular Volume 91.2 fL (80.0-100.0); Neutrophils % (auto) 88.9 % (37.0-80.0); Nucleated Red Blood Cells % 0.1 %; Red Cell Distribution Width 18.4 % (11.8-14.3)
[2020-10-19] MEDS ORDERED: FUROSEMIDE 40 MG/4 ML VIAL IV ONE (15:00)
[2020-10-19] MEDS: Glucerna 1.2 Cal 1Liter BOTTLE GT SCH (16:49)
[2020-10-19 17:02] VITALS: BP 147/54
[2020-10-19] MEDS ORDERED: EPOETIN ALFA-EPBX 10,000 UNIT/1ML VIAL SC SCH (21:00)
[2020-10-19 22:02] LABS: Basophils # (auto) 0 10 ^3/uL (0-0.2); Basophils % (auto) 0.1 % (0.0-2.0); Eosinophils # (auto) 0 10 ^3/uL (0-0.8); Hematocrit 25.3 % (36.0-46.0); Lymphocytes # (auto) 0.6 10 ^3/uL (0.4-5.4); Lymphocytes % (auto) 5.3 % (10.0-50.0); Mean Corpuscular Hemoglobin 28.5 pg (28.0-32.0); Mean Corpuscular Hgb Conc. 31.5 g/dL (32.0-36.0); Mean Corpuscular Volume 90.6 fL (80.0-100.0); Monocytes # (auto) 0.5 10 ^3/uL (0-1.3); Monocytes % (auto) 4.5 % (0.0-12.0); Neutrophils # (auto) 10.7 10 ^3/uL (1.6-8.6); Neutrophils % (auto) 90.1 % (37.0-80.0); Platelet Count (auto) 231 10^3/uL (140-450); Red Blood Cells 2.79 10^6/uL (4.0-5.20); White Blood Cell 11.8 10^3/uL (4.4-10.8)
[2020-10-19 22:25] VITALS: BP 155/59
[2020-10-20] MEDS: PIPERACILLIN-TAZOB 2.25GM 50 ML IV SCH ×4 (00:20→18:26)
[2020-10-20] MEDS: ACCU-CHEK COMFORT CURVE STRIP VI SCH ×6 (00:20→20:26)
[2020-10-20] MEDS: FREE WATER GT SCH ×4 (00:20→18:26)
[2020-10-20] MEDS: InsuLIN REG 1unit/0.01ml Soln (100units/ml) SC SCH ×6 (00:25→20:26)
[2020-10-20 01:30] VITALS: BP 155/59
[2020-10-20 04:45] VITALS: BP 165/71
[2020-10-20] MEDS: methylPREDNISolone SOD SUCC 40 MG/ML VL IV SCH ×3 (05:13→21:50)
[2020-10-20] MEDS: ACETYLCYSTEINE 10 %(100MG/ML) SOL 4ML NEB SCH ×3 (06:12→23:05)
[2020-10-20] MEDS: ALBUTEROL SULF 2.5 MG/0.5ML(0.5%) NEB SOLN NEB SCH ×3 (06:12→23:04)
[2020-10-20] MEDS: IPRATROPIUM BROM 0.5 MG/2.5ML INH SOL NEB SCH ×3 (06:12→23:05)
[2020-10-20 06:44] LABS: Basophils # (auto) 0 10 ^3/uL (0-0.2); Basophils % (auto) 0.1 % (0.0-2.0); Eosinophils # (auto) 0 10 ^3/uL (0-0.8); Eosinophils % (auto) 0.1 % (0.0-7.0); Hematocrit 26.1 % (36.0-46.0); Hemoglobin 8.3 g/dL (12.2-16.2); Lymphocytes # (auto) 0.7 10 ^3/uL (0.4-5.4); Lymphocytes % (auto) 6.1 % (10.0-50.0); Mean Corpuscular Hemoglobin 29.1 pg (28.0-32.0); Mean Corpuscular Hgb Conc. 31.6 g/dL (32.0-36.0); Mean Corpuscular Volume 92.1 fL (80.0-100.0); Monocytes # (auto) 0.5 10 ^3/uL (0-1.3); Monocytes % (auto) 4.7 % (0.0-12.0); Neutrophils # (auto) 10.3 10 ^3/uL (1.6-8.6); Nucleated Red Blood Cells % 0.1 %; Platelet Count (auto) 223 10^3/uL (140-450); Red Blood Cells 2.84 10^6/uL (4.0-5.20); Red Cell Distribution Width 18.6 % (11.8-14.3); White Blood Cell 11.5 10^3/uL (4.4-10.8)
[2020-10-20 06:47] LABS: Calcium 8.7 mg/dL (8.5-10.1); Magnesium 2.7 mg/dL (1.6-2.6); Potassium 4.5 mmol/L (3.5-5.1)
[2020-10-20 06:50] LABS: BUN/Creatinine Ratio 46.1
[2020-10-20 08:54] VITALS: BP 170/74
[2020-10-20 10:26] LABS: Basophils # (auto) 0 10 ^3/uL (0-0.2); Basophils % (auto) 0.2 % (0.0-2.0); Eosinophils # (auto) 0 10 ^3/uL (0-0.8); Eosinophils % (auto) 0.2 % (0.0-7.0); Hematocrit 26.6 % (36.0-46.0); Hemoglobin 8.5 g/dL (12.2-16.2); Lymphocytes # (auto) 0.5 10 ^3/uL (0.4-5.4); Lymphocytes % (auto) 4.3 % (10.0-50.0); Mean Corpuscular Hemoglobin 29.2 pg (28.0-32.0); Mean Corpuscular Volume 91.2 fL (80.0-100.0); Monocytes # (auto) 0.4 10 ^3/uL (0-1.3); Monocytes % (auto) 3.8 % (0.0-12.0); Neutrophils # (auto) 10.9 10 ^3/uL (1.6-8.6); Neutrophils % (auto) 91.5 % (37.0-80.0); Nucleated Red Blood Cells % 0.1 %; Platelet Count (auto) 217 10^3/uL (140-450); Red Blood Cells 2.92 10^6/uL (4.0-5.20); Red Cell Distribution Width 18.2 % (11.8-14.3)
[2020-10-20] MEDS: CARVEDILOL 3.125 MG TAB PO SCH ×2 (10:38→21:50)
[2020-10-20] MEDS: amLODIPine BESYLATE 5 MG TAB PO SCH (10:39)
[2020-10-20] MEDS: PANTOPRAZOLE 40 MG/10 ML VIAL INJ IV SCH ×2 (10:43→21:49)
[2020-10-20 10:48] LABS: Albumin 2.6 g/dL (3.4-5.0); Calcium 9.1 mg/dL (8.5-10.1); Potassium 4.4 mmol/L (3.5-5.1)
[2020-10-20 10:51] LABS: BUN/Creatinine Ratio 44.8; Bilirubin, Total 0.6 mg/dL (0.2-1.0); Total Protein 6.7 g/dL (6.4-8.2)
[2020-10-20] MEDS: D5W 5% 1,000 ML IV SCH ×2 (11:04→17:45)
[2020-10-20 13:00] VITALS: BP 163/68
[2020-10-20] MEDS: DOCUSATE ORAL LIQUID 100 MG/10 ML UD GT SCH ×2 (14:31→21:49)
[2020-10-20] MEDS: Glucerna 1.2 Cal 1Liter BOTTLE GT SCH (14:31)
[2020-10-20 16:27] VITALS: BP 144/64
[2020-10-20] MEDS: INSULIN LANTUS (GLARGINE) 1 /0.01ml (100units/ml) SC SCH (21:52)
[2020-10-20 22:00] VITALS: BP 160/116
[2020-10-20 22:35] LABS: Hemoglobin 8.1 g/dL (12.2-16.2); Mean Corpuscular Hemoglobin 30.3 pg (28.0-32.0); Mean Corpuscular Hgb Conc. 33.7 g/dL (32.0-36.0); Platelet Count (auto) 200 10^3/uL (140-450); Red Blood Cells 2.67 10^6/uL (4.0-5.20); Red Cell Distribution Width 17.6 % (11.8-14.3); White Blood Cell 13.5 10^3/uL (4.4-10.8)
[2020-10-20 22:40] LABS: Basophils % (manual) 0 (0.0-2.0); Blast Cells 0; Eosinophils % (manual) 0 (0-7); Myelocytes % 0; Promyelocytes % 0; Reactive Lymphocytes 0
[2020-10-20 22:45] LABS: Albumin 2.4 g/dL (3.4-5.0); Calcium 8.8 mg/dL (8.5-10.1); Potassium 4.7 mmol/L (3.5-5.1)
[2020-10-20 22:49] LABS: BUN/Creatinine Ratio 51.3; Bilirubin, Total 0.6 mg/dL (0.2-1.0); Total Protein 6.1 g/dL (6.4-8.2)
[2020-10-20 23:56] LABS: Band Neutrophils % (manual) 1; Lymphocytes % (manual) 6 (10.0-50.0); Metamyelocytes % 2; Monocytes % (manual) 2 (0-12)
[2020-10-21] MEDS: FREE WATER GT SCH ×5 (00:36→23:14)
[2020-10-21] MEDS: ACCU-CHEK COMFORT CURVE STRIP VI SCH ×7 (00:36→23:14)
[2020-10-21] MEDS: PIPERACILLIN-TAZOB 2.25GM 50 ML IV SCH ×5 (00:42→23:14)
[2020-10-21] MEDS: InsuLIN REG 1unit/0.01ml Soln (100units/ml) SC SCH ×7 (00:42→23:12)
[2020-10-21 05:00] VITALS: BP 151/56
[2020-10-21] MEDS: methylPREDNISolone SOD SUCC 40 MG/ML VL IV SCH ×3 (05:56→22:24)
[2020-10-21] MEDS: D5W 5% 1,000 ML IV SCH (05:57)
[2020-10-21] MEDS: ACETYLCYSTEINE 10 %(100MG/ML) SOL 4ML NEB SCH ×3 (06:04→21:55)
[2020-10-21] MEDS: ALBUTEROL SULF 2.5 MG/0.5ML(0.5%) NEB SOLN NEB SCH ×3 (06:04→21:55)
[2020-10-21] MEDS: IPRATROPIUM BROM 0.5 MG/2.5ML INH SOL NEB SCH ×3 (06:04→21:55)
[2020-10-21 09:00] VITALS: BP 150/63
[2020-10-21] MEDS: PANTOPRAZOLE 40 MG/10 ML VIAL INJ IV SCH ×2 (09:59→22:23)
[2020-10-21] MEDS: amLODIPine BESYLATE 5 MG TAB PO SCH (09:59)
[2020-10-21] MEDS: DOCUSATE ORAL LIQUID 100 MG/10 ML UD GT SCH ×2 (09:59→22:23)
[2020-10-21] MEDS: CARVEDILOL 3.125 MG TAB PO SCH ×2 (10:00→22:24)
[2020-10-21] MEDS: Glucerna 1.2 Cal 1Liter BOTTLE GT SCH (10:35)
[2020-10-21 10:43] LABS: Basophils # (auto) 0 10 ^3/uL (0-0.2); Basophils % (auto) 0.1 % (0.0-2.0); Eosinophils # (auto) 0 10 ^3/uL (0-0.8); Hematocrit 26.5 % (36.0-46.0); Hemoglobin 8.6 g/dL (12.2-16.2); Lymphocytes # (auto) 0.6 10 ^3/uL (0.4-5.4); Lymphocytes % (auto) 4.2 % (10.0-50.0); Mean Corpuscular Hemoglobin 29.2 pg (28.0-32.0); Mean Corpuscular Hgb Conc. 32.5 g/dL (32.0-36.0); Mean Corpuscular Volume 89.9 fL (80.0-100.0); Monocytes # (auto) 0.4 10 ^3/uL (0-1.3); Neutrophils # (auto) 12.4 10 ^3/uL (1.6-8.6); Neutrophils % (auto) 92.7 % (37.0-80.0); Nucleated Red Blood Cells % 0.1 %; Platelet Count (auto) 192 10^3/uL (140-450); Red Blood Cells 2.95 10^6/uL (4.0-5.20); Red Cell Distribution Width 17.9 % (11.8-14.3); White Blood Cell 13.4 10^3/uL (4.4-10.8)
[2020-10-21 10:58] LABS: Albumin 2.5 g/dL (3.4-5.0); Calcium 8.7 mg/dL (8.5-10.1); Potassium 4.5 mmol/L (3.5-5.1)
[2020-10-21 11:03] LABS: BUN/Creatinine Ratio 49.1; Bilirubin, Total 0.6 mg/dL (0.2-1.0); Total Protein 6.4 g/dL (6.4-8.2)
[2020-10-21 13:00] VITALS: BP 134/65
[2020-10-21] MEDS: SOD CHL 0.45% 1,000 ML IV SCH (14:30)
[2020-10-21 16:45] VITALS: BP 125/51
[2020-10-21 22:12] LABS: Hematocrit 25.4 % (36.0-46.0); Hemoglobin 8.4 g/dL (12.2-16.2); Mean Corpuscular Hemoglobin 29.5 pg (28.0-32.0); Mean Corpuscular Volume 89.6 fL (80.0-100.0); Platelet Count (auto) 200 10^3/uL (140-450); Red Blood Cells 2.83 10^6/uL (4.0-5.20); Red Cell Distribution Width 17.7 % (11.8-14.3)
[2020-10-21 22:16] LABS: Band Neutrophils % (manual) 0; Basophils % (manual) 0 (0.0-2.0); Blast Cells 0; Eosinophils % (manual) 0 (0-7); Metamyelocytes % 0; Myelocytes % 0; Promyelocytes % 0; Reactive Lymphocytes 0
[2020-10-21 22:21] VITALS: BP 160/65
[2020-10-21 22:30] LABS: Albumin 2.5 g/dL (3.4-5.0); BUN/Creatinine Ratio 46.7; Calcium 8.3 mg/dL (8.5-10.1); Potassium 4.6 mmol/L (3.5-5.1)
[2020-10-21 22:32] LABS: Bilirubin, Total 0.6 mg/dL (0.2-1.0); Total Protein 6.2 g/dL (6.4-8.2)
[2020-10-21 22:44] LABS: Lymphocytes % (manual) 4 (10.0-50.0); Monocytes % (manual) 4 (0-12)
[2020-10-21] MEDS: INSULIN LANTUS (GLARGINE) 1 /0.01ml (100units/ml) SC SCH (23:13)
[2020-10-22] MEDS: SOD CHL 0.45% 1,000 ML IV SCH ×3 (03:07→14:51)
[2020-10-22] MEDS: ACCU-CHEK COMFORT CURVE STRIP VI SCH ×6 (04:00→23:45)
[2020-10-22] MEDS: InsuLIN REG 1unit/0.01ml Soln (100units/ml) SC SCH ×6 (04:47→23:44)
[2020-10-22 05:00] VITALS: BP 155/62
[2020-10-22] MEDS: methylPREDNISolone SOD SUCC 40 MG/ML VL IV SCH ×3 (06:03→20:55)
[2020-10-22] MEDS: FREE WATER GT SCH ×4 (06:03→23:45)
[2020-10-22] MEDS: PIPERACILLIN-TAZOB 2.25GM 50 ML IV SCH ×4 (06:03→23:45)
[2020-10-22] MEDS: ALBUTEROL SULF 2.5 MG/0.5ML(0.5%) NEB SOLN NEB SCH ×3 (07:17→18:46)
[2020-10-22] MEDS: IPRATROPIUM BROM 0.5 MG/2.5ML INH SOL NEB SCH ×3 (07:17→18:46)
[2020-10-22] MEDS: ACETYLCYSTEINE 10 %(100MG/ML) SOL 4ML NEB SCH ×3 (07:17→18:46)
[2020-10-22] MEDS: DOCUSATE ORAL LIQUID 100 MG/10 ML UD GT SCH ×2 (08:53→20:55)
[2020-10-22] MEDS: PANTOPRAZOLE 40 MG/10 ML VIAL INJ IV SCH ×2 (08:54→20:55)
[2020-10-22] MEDS: CARVEDILOL 3.125 MG TAB PO SCH ×2 (08:55→20:53)
[2020-10-22] MEDS: amLODIPine BESYLATE 5 MG TAB PO SCH (08:55)
[2020-10-22 09:00] VITALS: BP 140/53
[2020-10-22 10:11] LABS: Hematocrit 24.6 % (36.0-46.0)
[2020-10-22 10:12] LABS: Hemoglobin 8.2 g/dL (12.2-16.2); Mean Corpuscular Hemoglobin 29.2 pg (28.0-32.0); Mean Corpuscular Hgb Conc. 33.1 g/dL (32.0-36.0); Mean Corpuscular Volume 88.2 fL (80.0-100.0); Platelet Count (auto) 179 10^3/uL (140-450); Red Blood Cells 2.79 10^6/uL (4.0-5.20); Red Cell Distribution Width 17.5 % (11.8-14.3); White Blood Cell 14.4 10^3/uL (4.4-10.8)
[2020-10-22 10:17] LABS: Basophils % (manual) 0 (0.0-2.0); Blast Cells 0; Eosinophils % (manual) 0 (0-7); Myelocytes % 0; Promyelocytes % 0; Reactive Lymphocytes 0
[2020-10-22 10:25] LABS: Calcium 8.6 mg/dL (8.5-10.1); Potassium 4.9 mmol/L (3.5-5.1)
[2020-10-22 10:31] LABS: Albumin 2.4 g/dL (3.4-5.0); BUN/Creatinine Ratio 47.6; Bilirubin, Total 0.7 mg/dL (0.2-1.0); Total Protein 6.2 g/dL (6.4-8.2)
[2020-10-22] MEDS: Glucerna 1.2 Cal 1Liter BOTTLE GT SCH (10:45)
[2020-10-22 11:19] LABS: Band Neutrophils % (manual) 1; Lymphocytes % (manual) 2 (10.0-50.0); Metamyelocytes % 1; Monocytes % (manual) 3 (0-12)
[2020-10-22 13:00] VITALS: BP 139/64
[2020-10-22 16:50] VITALS: BP 161/64
[2020-10-22] MEDS: INSULIN LANTUS (GLARGINE) 1 /0.01ml (100units/ml) SC SCH (20:44)
[2020-10-22 21:49] VITALS: BP 179/52
[2020-10-22 22:21] LABS: Hemoglobin 8.1 g/dL (12.2-16.2); Platelet Count (auto) 191 10^3/uL (140-450); Red Cell Distribution Width 17.8 % (11.8-14.3); White Blood Cell 15.5 10^3/uL (4.4-10.8)
[2020-10-22 22:23] LABS: Hematocrit 24.3 % (36.0-46.0); Mean Corpuscular Hemoglobin 29.6 pg (28.0-32.0); Mean Corpuscular Hgb Conc. 33.3 g/dL (32.0-36.0); Red Blood Cells 2.73 10^6/uL (4.0-5.20)
[2020-10-22 22:26] LABS: Basophils % (manual) 0 (0.0-2.0); Blast Cells 0; Eosinophils % (manual) 0 (0-7); Metamyelocytes % 0; Myelocytes % 0; Promyelocytes % 0; Reactive Lymphocytes 0
[2020-10-22 22:33] VITALS: BP 175/49
[2020-10-22 22:42] LABS: Albumin 2.4 g/dL (3.4-5.0); BUN/Creatinine Ratio 48.8; Calcium 8.3 mg/dL (8.5-10.1); Potassium 4.5 mmol/L (3.5-5.1)
[2020-10-22 22:45] LABS: Bilirubin, Total 0.6 mg/dL (0.2-1.0); Total Protein 6.2 g/dL (6.4-8.2)
[2020-10-22 23:03] LABS: Band Neutrophils % (manual) 3; Lymphocytes % (manual) 10 (10.0-50.0); Monocytes % (manual) 5 (0-12)
[2020-10-23] MEDS: ACCU-CHEK COMFORT CURVE STRIP VI SCH ×6 (03:31→23:26)
[2020-10-23] MEDS: InsuLIN REG 1unit/0.01ml Soln (100units/ml) SC SCH ×6 (03:33→23:27)
[2020-10-23 05:07] VITALS: BP 150/62
[2020-10-23] MEDS: PIPERACILLIN-TAZOB 2.25GM 50 ML IV SCH ×4 (05:30→23:27)
[2020-10-23] MEDS: methylPREDNISolone SOD SUCC 40 MG/ML VL IV SCH ×3 (05:30→21:17)
[2020-10-23] MEDS: FREE WATER GT SCH ×2 (05:30→12:00)
[2020-10-23] MEDS: IPRATROPIUM BROM 0.5 MG/2.5ML INH SOL NEB SCH ×3 (06:29→21:41)
[2020-10-23] MEDS: ALBUTEROL SULF 2.5 MG/0.5ML(0.5%) NEB SOLN NEB SCH ×3 (06:29→21:41)
[2020-10-23] MEDS: ACETYLCYSTEINE 10 %(100MG/ML) SOL 4ML NEB SCH ×3 (06:29→21:41)
[2020-10-23] MEDS: Glucerna 1.2 Cal 1Liter BOTTLE GT SCH (07:16)
[2020-10-23 09:00] VITALS: BP 161/69
[2020-10-23 09:36] LABS: Hematocrit 26.4 % (36.0-46.0); Hemoglobin 8.5 g/dL (12.2-16.2); Mean Corpuscular Hemoglobin 28.7 pg (28.0-32.0); Mean Corpuscular Hgb Conc. 32.1 g/dL (32.0-36.0); Mean Corpuscular Volume 89.2 fL (80.0-100.0); Platelet Count (auto) 197 10^3/uL (140-450); Red Blood Cells 2.96 10^6/uL (4.0-5.20); Red Cell Distribution Width 17.7 % (11.8-14.3); White Blood Cell 17.7 10^3/uL (4.4-10.8)
[2020-10-23 09:42] LABS: Basophils % (manual) 0 (0.0-2.0); Blast Cells 0; Eosinophils % (manual) 0 (0-7); Myelocytes % 0; Promyelocytes % 0; Reactive Lymphocytes 0
[2020-10-23 09:46] LABS: Albumin 2.4 g/dL (3.4-5.0); Calcium 8.4 mg/dL (8.5-10.1); Potassium 4.8 mmol/L (3.5-5.1)
[2020-10-23 09:50] LABS: BUN/Creatinine Ratio 48.4; Bilirubin, Total 0.6 mg/dL (0.2-1.0); Total Protein 6.3 g/dL (6.4-8.2)
[2020-10-23] MEDS: CARVEDILOL 3.125 MG TAB PO SCH ×2 (10:00→21:19)
[2020-10-23] MEDS: amLODIPine BESYLATE 5 MG TAB PO SCH (10:00)
[2020-10-23] MEDS: DOCUSATE ORAL LIQUID 100 MG/10 ML UD GT SCH ×2 (10:00→21:16)
[2020-10-23 10:09] LABS: Band Neutrophils % (manual) 2; Lymphocytes % (manual) 5 (10.0-50.0); Metamyelocytes % 2; Monocytes % (manual) 3 (0-12)
[2020-10-23] MEDS: PANTOPRAZOLE 40 MG/10 ML VIAL INJ IV SCH ×2 (11:19→21:16)
[2020-10-23 12:43] VITALS: BP 156/72
[2020-10-23] MEDS: SOD CHL 0.45% 1,000 ML IV SCH (13:55)
[2020-10-23 17:00] VITALS: BP 157/61
[2020-10-23] MEDS: INSULIN LANTUS (GLARGINE) 1 /0.01ml (100units/ml) SC SCH (21:17)
[2020-10-23 22:00] VITALS: BP 156/65
[2020-10-23 22:22] LABS: Hemoglobin 8.3 g/dL (12.2-16.2); Red Cell Distribution Width 17.7 % (11.8-14.3)
[2020-10-23 22:24] LABS: Hematocrit 24.8 % (36.0-46.0); Mean Corpuscular Hemoglobin 29.8 pg (28.0-32.0); Mean Corpuscular Hgb Conc. 33.4 g/dL (32.0-36.0); Mean Corpuscular Volume 89.2 fL (80.0-100.0); Platelet Count (auto) 196 10^3/uL (140-450); Red Blood Cells 2.78 10^6/uL (4.0-5.20); White Blood Cell 15.7 10^3/uL (4.4-10.8)
[2020-10-23 22:28] LABS: Basophils % (manual) 0 (0.0-2.0); Blast Cells 0; Eosinophils % (manual) 0 (0-7); Metamyelocytes % 0; Myelocytes % 0; Promyelocytes % 0; Reactive Lymphocytes 0
[2020-10-23 22:40] LABS: Albumin 2.3 g/dL (3.4-5.0); Anion Gap 7 (5-15); Blood Urea Nitrogen 61 mg/dL (7-18); Calcium 8.2 mg/dL (8.5-10.1); Carbon Dioxide 22 mmol/L (21-32); Chloride 112 mmol/L (98-107); Glucose 123 mg/dL (74-106); Potassium 4.6 mmol/L (3.5-5.1); Sodium 141 mmol/L (136-145)
[2020-10-23 22:42] LABS: Alanine Aminotransferase 26 U/L (13-56); Aspartate Aminotransferase 19 U/L (15-37); BUN/Creatinine Ratio 41.8; GFR African American 44 mL/min; GFR Non-African American 36 mL/min
[2020-10-23 22:45] LABS: Alkaline Phosphatase 65 U/L (45-117); Bilirubin, Total 0.6 mg/dL (0.2-1.0); Total Protein 6.1 g/dL (6.4-8.2)
[2020-10-23 22:58] LABS: Band Neutrophils % (manual) 1; Lymphocytes % (manual) 7 (10.0-50.0); Monocytes % (manual) 2 (0-12)
[2020-10-24] MEDS: ACCU-CHEK COMFORT CURVE STRIP VI SCH ×5 (04:39→19:33)
[2020-10-24] MEDS: InsuLIN REG 1unit/0.01ml Soln (100units/ml) SC SCH ×5 (04:47→19:35)
[2020-10-24 05:00] VITALS: BP 166/68
[2020-10-24] MEDS: PIPERACILLIN-TAZOB 2.25GM 50 ML IV SCH ×3 (05:03→18:22)
[2020-10-24] MEDS: methylPREDNISolone SOD SUCC 40 MG/ML VL IV SCH (05:03)
[2020-10-24] MEDS: ACETYLCYSTEINE 10 %(100MG/ML) SOL 4ML NEB SCH ×3 (06:45→23:27)
[2020-10-24] MEDS: ALBUTEROL SULF 2.5 MG/0.5ML(0.5%) NEB SOLN NEB SCH ×3 (06:45→23:27)
[2020-10-24] MEDS: IPRATROPIUM BROM 0.5 MG/2.5ML INH SOL NEB SCH ×3 (06:45→23:27)
[2020-10-24 08:30] VITALS: BP 166/78
[2020-10-24 09:00] VITALS: BP 166/78
[2020-10-24] MEDS: Glucerna 1.2 Cal 1Liter BOTTLE GT SCH (09:38)
[2020-10-24] MEDS: DOCUSATE ORAL LIQUID 100 MG/10 ML UD GT SCH ×2 (09:38→21:07)
[2020-10-24] MEDS: PANTOPRAZOLE 40 MG/10 ML VIAL INJ IV SCH ×2 (09:39→21:07)
[2020-10-24] MEDS: amLODIPine BESYLATE 5 MG TAB PO SCH (09:41)
[2020-10-24] MEDS: CARVEDILOL 3.125 MG TAB PO SCH ×2 (09:41→22:07)
[2020-10-24 10:14] LABS: Basophils # (auto) 0 10 ^3/uL (0-0.2); Eosinophils # (auto) 0 10 ^3/uL (0-0.8); Hemoglobin 8.4 g/dL (12.2-16.2); Lymphocytes # (auto) 0.6 10 ^3/uL (0.4-5.4); Monocytes # (auto) 0.4 10 ^3/uL (0-1.3)
[2020-10-24 10:16] LABS: Hematocrit 26.1 % (36.0-46.0); Lymphocytes % (auto) 3.6 % (10.0-50.0); Mean Corpuscular Hemoglobin 28.9 pg (28.0-32.0); Mean Corpuscular Hgb Conc. 32.2 g/dL (32.0-36.0); Mean Corpuscular Volume 89.6 fL (80.0-100.0); Monocytes % (auto) 2.5 % (0.0-12.0); Neutrophils # (auto) 14.7 10 ^3/uL (1.6-8.6); Neutrophils % (auto) 93.9 % (37.0-80.0); Platelet Count (auto) 187 10^3/uL (140-450); Red Blood Cells 2.92 10^6/uL (4.0-5.20); Red Cell Distribution Width 17.5 % (11.8-14.3); White Blood Cell 15.7 10^3/uL (4.4-10.8)
[2020-10-24 10:29] LABS: Albumin 2.4 g/dL (3.4-5.0); Calcium 8.4 mg/dL (8.5-10.1); Potassium 4.6 mmol/L (3.5-5.1)
[2020-10-24 10:32] LABS: BUN/Creatinine Ratio 42.3; Bilirubin, Total 0.7 mg/dL (0.2-1.0); Total Protein 6.1 g/dL (6.4-8.2)
[2020-10-24 12:30] VITALS: BP 144/59
[2020-10-24 17:00] VITALS: BP 156/65
[2020-10-24] MEDS: SOD CHL 0.45% 1,000 ML IV SCH (19:29)
[2020-10-24] MEDS: INSULIN LANTUS (GLARGINE) 1 /0.01ml (100units/ml) SC SCH (21:07)
[2020-10-24 22:00] VITALS: BP 147/59
[2020-10-24 22:43] LABS: Basophils # (auto) 0 10 ^3/uL (0-0.2); Basophils % (auto) 0.1 % (0.0-2.0); Eosinophils # (auto) 0.1 10 ^3/uL (0-0.8); Eosinophils % (auto) 1.1 % (0.0-7.0); Hematocrit 23.2 % (36.0-46.0); Hemoglobin 7.8 g/dL (12.2-16.2); Lymphocytes # (auto) 0.8 10 ^3/uL (0.4-5.4); Lymphocytes % (auto) 6.7 % (10.0-50.0); Mean Corpuscular Hemoglobin 29.8 pg (28.0-32.0); Mean Corpuscular Hgb Conc. 33.5 g/dL (32.0-36.0); Mean Corpuscular Volume 88.9 fL (80.0-100.0); Monocytes % (auto) 8.3 % (0.0-12.0); Neutrophils # (auto) 10.3 10 ^3/uL (1.6-8.6); Neutrophils % (auto) 83.8 % (37.0-80.0); Nucleated Red Blood Cells % 0.1 %; Platelet Count (auto) 183 10^3/uL (140-450); Red Blood Cells 2.61 10^6/uL (4.0-5.20); Red Cell Distribution Width 17.6 % (11.8-14.3); White Blood Cell 12.3 10^3/uL (4.4-10.8)
[2020-10-24 22:57] LABS: Albumin 2.2 g/dL (3.4-5.0); Calcium 7.9 mg/dL (8.5-10.1); Potassium 4.1 mmol/L (3.5-5.1)
[2020-10-24 23:01] LABS: BUN/Creatinine Ratio 40.4; Bilirubin, Total 0.6 mg/dL (0.2-1.0); Total Protein 5.7 g/dL (6.4-8.2)
[2020-10-25] MEDS: ACCU-CHEK COMFORT CURVE STRIP VI SCH ×5 (01:55→17:27)
[2020-10-25] MEDS: PIPERACILLIN-TAZOB 2.25GM 50 ML IV SCH ×3 (01:55→12:04)
[2020-10-25] MEDS: InsuLIN REG 1unit/0.01ml Soln (100units/ml) SC SCH ×5 (04:00→17:31)
[2020-10-25 05:00] VITALS: BP 140/64
[2020-10-25] MEDS: IPRATROPIUM BROM 0.5 MG/2.5ML INH SOL NEB SCH ×2 (06:26→13:45)
[2020-10-25] MEDS: ALBUTEROL SULF 2.5 MG/0.5ML(0.5%) NEB SOLN NEB SCH ×2 (06:26→13:45)
[2020-10-25] MEDS: ACETYLCYSTEINE 10 %(100MG/ML) SOL 4ML NEB SCH ×2 (06:26→13:45)
[2020-10-25 08:30] VITALS: BP 155/57
[2020-10-25 08:53] LABS: Basophils # (auto) 0 10 ^3/uL (0-0.2); Basophils % (auto) 0.1 % (0.0-2.0); Eosinophils # (auto) 0.4 10 ^3/uL (0-0.8); Hemoglobin 8.2 g/dL (12.2-16.2); Lymphocytes # (auto) 0.8 10 ^3/uL (0.4-5.4); Mean Corpuscular Volume 89.1 fL (80.0-100.0); Neutrophils # (auto) 10.4 10 ^3/uL (1.6-8.6)
[2020-10-25 08:55] LABS: Eosinophils % (auto) 3.1 % (0.0-7.0); Hematocrit 24.6 % (36.0-46.0); Mean Corpuscular Hemoglobin 29.7 pg (28.0-32.0); Mean Corpuscular Hgb Conc. 33.3 g/dL (32.0-36.0); Monocytes % (auto) 8.1 % (0.0-12.0); Neutrophils % (auto) 82.7 % (37.0-80.0); Platelet Count (auto) 171 10^3/uL (140-450); Red Blood Cells 2.76 10^6/uL (4.0-5.20); Red Cell Distribution Width 17.3 % (11.8-14.3); White Blood Cell 12.6 10^3/uL (4.4-10.8)
[2020-10-25 09:11] LABS: Albumin 2.2 g/dL (3.4-5.0); Magnesium 2.6 mg/dL (1.6-2.6); Potassium 3.8 mmol/L (3.5-5.1)
[2020-10-25 09:14] LABS: BUN/Creatinine Ratio 40.7; Bilirubin, Total 0.6 mg/dL (0.2-1.0); Phosphorus 3.2 mg/dL (2.5-4.90); Total Protein 5.8 g/dL (6.4-8.2)
[2020-10-25] MEDS: DOCUSATE ORAL LIQUID 100 MG/10 ML UD GT SCH (10:46)
[2020-10-25] MEDS: PANTOPRAZOLE 40 MG/10 ML VIAL INJ IV SCH (10:47)
[2020-10-25] MEDS: Glucerna 1.2 Cal 1Liter BOTTLE GT SCH (10:47)
[2020-10-25] MEDS: CARVEDILOL 3.125 MG TAB PO SCH (10:48)
[2020-10-25] MEDS: amLODIPine BESYLATE 5 MG TAB PO SCH (10:49)
[2020-10-25 12:30] VITALS: BP 135/42
[2020-10-25] MEDS: SOD CHL 0.45% 1,000 ML IV SCH (14:20)
[2020-10-25 15:45] VITALS: BP 135/42
[2020-10-25 16:47] VITALS: BP 146/51
== END 2020-10-25 18:30 | DRG 870 ==
LOC: ER 14:48 → EDBD 14:48 → TELE 21:21 → ICU WEST 10-02 08:45 → TELE-CENTR 10-17 21:41
PROVIDERS: ADMIT Nurse Practitioner; ATTEND Internal Medicine
PROC: 5A1955Z Respiratory Ventilation, Greater than 96 Consecutive Hours (ICD-10-PCS; principal; 2020-10-01)
PROC: 0BH17EZ Insertion of Endotracheal Airway into Trachea, Via Natural or Artificial Opening (ICD-10-PCS; 2020-10-01)
PROC: 02HV33Z Insertion of Infusion Device into Superior Vena Cava, Percutaneous Approach (ICD-10-PCS; 2020-10-01)
PROC: 30233N1 Transfusion of Nonautologous Red Blood Cells into Peripheral Vein, Percutaneous Approach (ICD-10-PCS; 2020-10-03)
PROC: 0BJ08ZZ Inspection of Tracheobronchial Tree, Via Natural or Artificial Opening Endoscopic (ICD-10-PCS; 2020-10-06)
PROC: 0BCB8ZZ Extirpation of Matter from Left Lower Lobe Bronchus, Via Natural or Artificial Opening Endoscopic (ICD-10-PCS; 2020-10-06)
PROC: 0BC58ZZ Extirpation of Matter from Right Middle Lobe Bronchus, Via Natural or Artificial Opening Endoscopic (ICD-10-PCS; 2020-10-06)
PROC: 0BC68ZZ Extirpation of Matter from Right Lower Lobe Bronchus, Via Natural or Artificial Opening Endoscopic (ICD-10-PCS; 2020-10-06)
PROC: 0DJ08ZZ Inspection of Upper Intestinal Tract, Via Natural or Artificial Opening Endoscopic (ICD-10-PCS; 2020-10-10)
DX: A41.9 Sepsis, unspecified organism (principal); J96.01 Acute respiratory failure with hypoxia; J18.9 Pneumonia, unspecified organism; G93.41 Metabolic encephalopathy; I50.43 Acute on chronic combined systolic (congestive) and diastolic (congestive) heart failure; I16.1 Hypertensive emergency; J98.11 Atelectasis; G93.1 Anoxic brain damage, not elsewhere classified; E87.1 Hypo-osmolality and hyponatremia; K92.2 Gastrointestinal hemorrhage, unspecified; N17.9 Acute kidney failure, unspecified; N18.4 Chronic kidney disease, stage 4 (severe); E87.0 Hyperosmolality and hypernatremia; G72.81 Critical illness myopathy; J44.0 Chronic obstructive pulmonary disease with (acute) lower respiratory infection; I27.20 Pulmonary hypertension, unspecified; D25.9 Leiomyoma of uterus, unspecified; E11.22 Type 2 diabetes mellitus with diabetic chronic kidney disease; E27.9 Disorder of adrenal gland, unspecified; I48.91 Unspecified atrial fibrillation; E66.9 Obesity, unspecified; Z68.31 Body mass index [BMI] 31.0-31.9, adult; E87.6 Hypokalemia; Z20.822 Contact with and (suspected) exposure to COVID-19; E11.65 Type 2 diabetes mellitus with hyperglycemia; E87.5 Hyperkalemia
CPT/HCPCS: 31500; 31622; 36415; 36556; 36600; 43235; 70450; 71045; 71250; 74021; 74176; 80048; 80053; 81001; 82040; 82043; 82270; 82570; 82607; 82668; 82728; 82746; 82805; 82962; 83010; 83540; 83550; 83615; 83735; 83880; 84100; 84156; 84439; 84443; 84484; 85007; 85025; 85027; 85045; 85610; 85652; 85730; 86141; 86225; 86235; 86850; 86880; 86900; 86901; 86920; 87070; 87081; 87205; 87426; 92507; 92610; 93005; 94002; 94003; 94640; 96374; 96375; 97110; 97530; 99291; A4618; C9113; G0378; J0171; J0330; J1815; J2250; J2405; J2543; J2704; J3480; J7060